=== PATIENT | female | born 1960 | race African-American/Black ===

== ENCOUNTER 2020-04-19 10:12 | Emergency (ER) | payer OTHER ==
[~2020-04-19] VITALS: Ht 175.3 cm; Wt 102.8 kg
[2020-04-19] MEDS ORDERED: diabetic med (10:23)
[2020-04-19] MEDS ORDERED: METF500T13 PO (10:23)
[2020-04-19] MEDS ORDERED: PANT20TA6 PO (10:23)
[2020-04-19] MEDS ORDERED: LISI2.5T2 PO (10:23)
[2020-04-19] MEDS ORDERED: blood pressure meds PO (10:23)
[2020-04-19] MEDS ORDERED: COLA100C5 PO (10:23)
[2020-04-19] MEDS ORDERED: LORA2CON5 PO (10:23)
[2020-04-19] MEDS ORDERED: AMIT-253 PO (10:23)
[2020-04-19] MEDS ORDERED: ONDANSETRON 4MG/2ML VIAL IV ONE (11:00)
[2020-04-19] MEDS ORDERED: GI COCKTAIL 50ML BTL(HYOSCYAMINE/MAALOX/LIDOCAINE VISCOUS)(1:3:1) PO ONE (11:00)
[2020-04-19] MEDS ORDERED: FAMOTIDINE INJ 20MG/2ML VIAL (S0028 PER 1) IVP ONE (11:00)
[2020-04-19] MEDS ORDERED: KETOROLAC 30 MG/ML 1ML VIAL IV ONE (11:00)
[2020-04-19 11:01] LABS: HEMATOCRIT 41.4 % (36.0-47.0); HEMOGLOBIN 12.9 g/dl (12.0-15.5); MEAN CORPUSCULAR HEMOGLOBIN 25.7 pg (27.0-33.0); MEAN CORPUSCULAR HGB CONC 31.2 g/dl (32.0-36.5); MEAN CORPUSCULAR VOLUME 82.5 fl (80.0-96.0); PLATELET COUNT, AUTOMATED 341 10^3/uL (150-450); RED BLOOD COUNT 5.02 10^6/uL (4.00-5.40); WHITE BLOOD COUNT 11.6 10^3/uL (4.0-10.0)
[2020-04-19] MEDS ORDERED: ISOVUE-370 76% 100ML VIAL As Ordered ONE (11:03)
[2020-04-19 11:24] LABS: ALBUMIN 3.1 GM/DL (3.2-5.2); ALT/SGPT 7 U/L (12-78); BILIRUBIN,DIRECT < 0.1 MG/DL (0.0-0.2); BILIRUBIN,TOTAL 0.2 MG/DL (0.2-1.0); LIPASE 137 U/L (73-393); TOTAL PROTEIN 7.8 GM/DL (6.4-8.2)
[2020-04-19] MEDS ORDERED: NS 1,000 ML IV ONE ×2 (11:30→12:15)
[2020-04-19 11:33] LABS: BLOOD UREA NITROGEN 10 MG/DL (7-18); CARBON DIOXIDE LEVEL 22 MEQ/L (21-32); CHLORIDE LEVEL 107 MEQ/L (98-107); CREATININE FOR GFR 0.92 MG/DL (0.55-1.30); GLOMERULAR FILTRATION RATE > 60.0 (>45); GLUCOSE, FASTING 186 MG/DL (70-100); POTASSIUM SERUM 3.9 MEQ/L (3.5-5.1); SODIUM LEVEL 138 MEQ/L (136-145)
--- NOTE | 2020-04-19 11:54 | REPVR ---
PROCEDURE INFORMATION: Exam: CT Abdomen And Pelvis With Contrast Exam date and time: 04/19/2020 11:08 AM Age: 59 years old Clinical indication: Abdominal pain; Localized; Right upper quadrant (ruq); Additional info: Ruq/mid gastric abd pain TECHNIQUE: Imaging protocol: Computed tomography of the abdomen and pelvis with intravenous contrast. Radiation optimization: All CT scans at this facility use at least one of these dose optimization techniques: automated exposure control; mA and/or kV adjustment per patient size (includes targeted exams where dose is matched to clinical indication); or iterative reconstruction. Contrast material: ISOVUE 370; Contrast volume: 100 ml; Contrast route: INTRAVENOUS (IV); COMPARISON: No relevant prior studies available. FINDINGS: Liver: Normal. No mass. Gallbladder and bile ducts: Normal. No calcified stones. No ductal dilation. Pancreas: Normal. No ductal dilation. Spleen: Normal. No splenomegaly. Adrenals: Normal. No mass. Kidneys and ureters: Bilateral renal benign simple cysts, larger on the left measuring 14.6 mm. Moderate left, minimal right renal cortical scarring. Stomach and bowel: Unremarkable. No obstruction. No mucosal thickening. Appendix: The vermiform appendix is normal. Intraperitoneal space: Unremarkable. No free air. No significant fluid collection. Vasculature: The distal descending thoracic aorta project slightly to right of midline, possibly due to tortuosity. Cardiac situs is normal as visualized. Calcified phleboliths are present in the lower pelvis bilaterally. Lymph nodes: No enlarged lymph nodes. Urinary bladder: The urinary bladder is partially decompressed and somewhat difficult to assess. Reproductive: Small benign-appearing left adnexal calcification. Bones/joints: Unremarkable. No acute fracture. Soft tissues: A small paraumbilical hernia containing only abdominal fat is noted. Right gluteal adipose calcified injection granulomata. IMPRESSION: 1. Bilateral renal benign simple cysts. No specific followup required/recommended. 2. Moderate left, minimal right renal cortical scarring. 3. No acute abdominal or pelvic abnormality identified. COMMENTS: Consistent with the [employer] [employer]'s Incidental Findings Committee white paper (J Am Teresa Radiol 2018): Any incidental renal lesion less than 1 cm or classified as too small to characterize, or any incidental cystic renal lesion characterized as simple-appearing, is likely benign. No follow-up imaging is recommended for these lesions per consensus recommendations based on imaging criteria. Electronically signed by: Ernesto Gomez On 04/19/2020 11:54:44 AM
--- NOTE | 2020-04-19 12:51 | REPVR ---
PROCEDURE INFORMATION: Exam: US Abdomen, Limited; Right Upper Quadrant Exam date and time: 04/19/2020 12:32 PM Age: 59 years old Clinical indication: Abdominal pain; Epigastric; Additional info: Ruq pain TECHNIQUE: Imaging protocol: US abdomen. Real time ultrasound with image documentation. Limited exam focused on the right upper quadrant. COMPARISON: CT ABD/PEL W/IV CONTRAST ONLY 04/19/2020 11:04 AM FINDINGS: Liver: Normal. No masses. Gallbladder: The gallbladder wall measures 2.6 mm. No gallstones. Common bile duct: The common bile duct measures 4.2 mm. No ductal calculi as visualized. Pancreas: The pancreas head and neck are unremarkable. The remainder of the gland is obscured by bowel gas. Right kidney: The right kidney measures 12.0 x 4.1 x 5.9 cm. Unremarkable. A brief color Doppler examination of the right kidney was performed showing normal color shifts. IMPRESSION: 1. Limitations as above. 2. No acute right upper quadrant abnormality identified. Electronically signed by: Ernesto Gomez On 04/19/2020 12:51:54 PM
[2020-04-19] MEDS ORDERED: SUCR1TA PO (15:59)
[2020-04-19 16:19] VITALS: BP 154/82
--- NOTE | 2020-04-20 05:34 | ECGEPIP ---
[facility] - ED Test Date: 2020-04-19 Pat Name: MAKSIM SCHULZ Department: Room: - Gender: Female Skimmer: : 1960 Requested By: Anil Bob Order Number: [id number] Reading MD: Robinson Lucero Measurements Intervals [place] Rate: 72 P: 27 MD: 164 QRS: -2 QRSD: 92 T: 32 QT: 416 QTc: 458 Interpretive Statements SINUS RHYTHM MINIMAL VOLTAGE CRITERIA FOR LVH, CONSIDER NORMAL VARIANT NO PRIORS FOR COMPARISON Electronically Signed on 04-20-2020 5:33:52 EDT by Robinson Lucero
--- NOTE | 2020-04-22 07:58 | ECGEPIP ---
[facility] Test Date: 2020-04-19 Pat Name: MAKSIM SCHULZ Department: Room: - Gender: Female [employer] Professional: : 1960 Requested By: PEG SIMON Order Number: [id number] Reading MD: Andrei Lugo Measurements Intervals [place] Rate: 67 P: 58 VA: 169 QRS: 14 QRSD: 90 T: 68 QT: 426 QTc: 453 Interpretive Statements Normal sinus rhythm Subtle nonspecific T wave abnormalities compared with tracing earlier the same day Clinical correlation advised Electronically Signed on 04-22-2020 7:58:04 EDT by Andrei Lugo
[2020-04-24] MEDS ORDERED: FLUTISP (15:16)
== END 2020-04-19 16:39 | disposition home or self-care (01) ==
LOC: M ED 10:12
DX: K29.70 Gastritis, unspecified, without bleeding (principal); K21.9 Gastro-esophageal reflux disease without esophagitis; N28.1 Cyst of kidney, acquired; I10 Essential (primary) hypertension; E11.9 Type 2 diabetes mellitus without complications; F41.9 Anxiety disorder, unspecified; F43.10 Post-traumatic stress disorder, unspecified; F31.9 Bipolar disorder, unspecified; Z79.82 Long term (current) use of aspirin; Z79.899 Other long term (current) drug therapy; Z79.84 Long term (current) use of oral hypoglycemic drugs; Z88.6 Allergy status to analgesic agent; Z88.8 Allergy status to other drugs, medicaments and biological substances
CPT/HCPCS: 36415; 74177; 76705; 80047; 80048; 80076; 83605; 83690; 84484; 85027; 93005; 93041; 96361; 96374; 99284; J1885; J2405; Q9967

== ENCOUNTER 2020-04-24 11:03 | Observation (INO) | payer OTHER ==
[~2020-04-24] VITALS: Ht 175.3 cm; Wt 104.3 kg
[2020-04-24] MEDS: OLANZapine 10 MG TAB PO SCH (09:00)
[~2020-04-24 11:03] MED LIST: AMIT-253 PO; COLA100C5 PO; LISI2.5T2 PO; LORA2CON5 PO; METF500T13 PO; PANT20TA6 PO; SUCR1TA PO; blood pressure meds PO; diabetic med
[2020-04-24] MEDS ORDERED: NS 1,000 ML IV ONE (11:45)
[2020-04-24] MEDS ORDERED: KETOROLAC 30 MG/ML 1ML VIAL IV ONE (11:45)
[2020-04-24] MEDS ORDERED: FAMOTIDINE INJ 20MG/2ML VIAL (S0028 PER 1) IVP ONE (11:45)
[2020-04-24 12:33] LABS: BASO # 0.1 10^3/uL (0.0-0.2); BASO % 0.5 % (0.0-1.0); EOS # 0.1 10^3/uL (0.0-0.5); HEMOGLOBIN 13.7 g/dl (12.0-15.5); LYMPH # 3.5 10^3/uL (1.5-5.0); LYMPH % 30.2 % (24.0-44.0); MEAN CORPUSCULAR HEMOGLOBIN 25.2 pg (27.0-33.0); MEAN CORPUSCULAR HGB CONC 30.4 g/dl (32.0-36.5); MEAN CORPUSCULAR VOLUME 82.7 fl (80.0-96.0); MONO # 0.8 10^3/uL (0.0-0.8); MONO % 6.5 % (0.0-5.0); NEUTROPHILS # 7.2 10^3/uL (1.5-8.5); NEUTROPHILS % 61.5 % (36.0-66.0); PLATELET COUNT, AUTOMATED 383 10^3/uL (150-450); RED BLOOD COUNT 5.44 10^6/uL (4.00-5.40); WHITE BLOOD COUNT 11.6 10^3/uL (4.0-10.0)
[2020-04-24 12:48] LABS: INR 0.97; PROTHROMBIN TIME 13.1 SECONDS (12.5-14.3)
[2020-04-24 12:49] LABS: PARTIAL THROMBOPLASTIN TIME 31.1 SECONDS (24.2-38.5)
[2020-04-24 13:10] LABS: ALBUMIN 3.4 GM/DL (3.2-5.2); ALT/SGPT < 6 U/L (12-78); BILIRUBIN,DIRECT < 0.1 MG/DL (0.0-0.2); BILIRUBIN,TOTAL 0.2 MG/DL (0.2-1.0); CK-MB VALUE MASS < 1.0 NG/ML (<3.6); CPK CREATINE PHOSPHOKINASE 47 U/L (26-192); LIPASE 737 U/L (73-393); MB/CK RELATIVE INDEX 2.13 (< OR =4); TOTAL PROTEIN 7.8 GM/DL (6.4-8.2); TROPONIN I < 0.02 NG/ML (< 0.10)
[2020-04-24] MEDS ORDERED: ISOVUE-370 76% 100ML VIAL As Ordered ONE (13:33)
--- NOTE | 2020-04-24 14:03 | REP ---
INDICATION: abd eckert/ inc lipase. COMPARISON: 04/19/2020 TECHNIQUE: Axial contrast-enhanced images from the lung bases to the pubic symphysis using 100 cc Isovue 370 intravenous contrast material. Coronal and sagittal reformations obtained.. This CT examination was performed using the following dose reduction techniques: Automated exposure control, adjustment of mA and/or kv according to the patient's size, and the use of iterative reconstruction technique. FINDINGS: Liver, spleen, pancreas, gallbladder, bilateral adrenal glands and kidneys are essentially normal. Few bilateral renal cysts are again noted and unchanged. The enteric system including stomach, small, and large bowel appears normal. No evidence for obstruction or acute inflammatory process. Normal terminal ileum and appendix are identified in the right lower quadrant. Pelvis demonstrates normal bladder and age-appropriate uterus/adnexa. No ascites. No free air. No intraperitoneal or retroperitoneal adenopathy. Abdominal aorta and vasculature appear normal. Musculoskeletal structures are intact and without acute osseous abnormality. IMPRESSION: No acute abdominopelvic pathology appreciated. No ascites. No focal inflammatory stranding. No adenopathy. No free air. <Electronically signed by Eric Salgado > 04/24/20 [id number]
[2020-04-24] MEDS ORDERED: MORPHINE 4 MG/ML 1ML VIAL/SYRINGE (J2270) IV ONE (14:45)
[2020-04-24] MEDS ORDERED: PANT40TA29 PO (15:16)
[2020-04-24] MEDS ORDERED: CARV25TA PO (15:16)
[2020-04-24] MEDS ORDERED: ONDA8TAB8 PO (15:16)
[2020-04-24] MEDS ORDERED: PREG300C PO (15:16)
[2020-04-24] MEDS ORDERED: FLUTISP NARES (15:16)
[2020-04-24] MEDS ORDERED: ALOG12.5 PO (15:16)
[2020-04-24] MEDS ORDERED: CITA40TA4 PO (15:16)
[2020-04-24] MEDS ORDERED: SUCR1TAB56 PO (15:16)
[2020-04-24] MEDS ORDERED: AMLO1TAB25 PO (15:16)
[2020-04-24] MEDS ORDERED: ATIV1TAB10 PO (15:16)
[2020-04-24] MEDS ORDERED: OLAN20TA14 PO (15:16)
[2020-04-24] MEDS ORDERED: ASPI-551 PO (15:16)
[2020-04-24] MEDS ORDERED: METF850T4 PO (15:16)
[2020-04-24] MEDS ORDERED: SIMV40TA20 PO (15:16)
[2020-04-24] MEDS ORDERED: IBUP-1022 PO (15:16)
[2020-04-24] MEDS ORDERED: DOCU100C16 PO (15:16)
[2020-04-24] MEDS ORDERED: D31000TA2 PO (15:16)
[2020-04-24] MEDS ORDERED: AMIT10TA PO (15:16)
--- NOTE | 2020-04-24 15:40 | HPEPDOC ---
[facility] Medical History & Physical Date of Admission Apr 24, 2020 Date of Service: Apr 24, 2020 History and Physical CHIEF COMPLAINT: abdominal pain HISTORY OF PRESENT ILLNESS: Patient is a 59-year-old female with past medical history of tobacco use, hx of pancreatitis, diabetes mellitus type 2, hypertension, bipolar disorder, PTSD who presented to [facility] ER with worsening epigastric pain. The patient was recently seen here on 04/19/2020 with similar type pain, lipase was mildly elevated at 137, WBC was wnl. She ended up discharged with a diagnosis of gastritis on sucralfate 4 times a day. After her discharge, her pain improved for three days after but then worsened. She describes the pain as epigastric and in the left upper quadrant on exam. She says it is constant, today went up to 10/10, radiated to the back and associated with simultaneous anterior chest pain. The chest pain was not noted to radiate to the neck or down the arm. Abdominal pain was associated with some nausea and diaphoresis along with a decreased appetite over the past 3 weeks. She denies shortness of breath, vomiting, diarrhea, coughing, fevers or chills, lightheadedness, dizziness or beat numbness. In the emergency room, VS were stable. Pain was present in the epigastric, umbilical and left upper quadrant. Pain was recreated in the anterior chest separate from the abdominal pain, was found to be likely musculoskeletal. lipase was elevated at 737 from [address] abd/pelvis neg. WBC 11.6, minimally elevated. Patient was admitted under observation status for abdominal pain r/o acute pancreatitis vs. gastric ulcer, chest pain. REVIEW OF SYSTEMS: Neg except mentioned above PAST MEDICAL HISTORY: 1. Hx of pancreatitis 2. DM type II 3. HTN 4. Tobacco use 5. Bipolar disorder 6. PTSD 7. Obesity PAST SURGICAL HISTORY: 1. 2 cesarian sections FAMILY HISTORY: Father: DM, HTN, cancer. at 81 y/o Mother: She does not know her health history or if she is alive/ SOCIAL HISTORY: Smoker 1 1/2 PPD for past 48 years, denies alcohol or drug use. Just recently moved into the area from [place]. Has not yet established PCP with [facility] but has upcoming appointment. Follows with behavioral health/psych through [place], endocrine through [place]. Full Code. ALLERGIES: Please see below. HOME MEDICATIONS: Please see below. PHYSICAL EXAMINATION: VS: Please see below CONSTITUTIONAL: No acute distress, resting comfortably, AAO x 3 EYES: PERRLA, EOM intact HENT, MOUTH: Normocephalic, atraumatic, moist mucous membranes NECK: SUPPLE, no JVD, no lymphadenopathy, no carotid bruit CV: Regular rate and rhythm, S1S2 normal, no murmurs/rubs/gallops RESPIRATORY: Clear to auscultation bilaterally, no rales/rhonchi/wheezes GI: Pain to palpation of epigastric, umbilical and LUQ 4/10. BS positive in 4 quadrants, soft, no rebound or guarding, no organomegaly : Deferred MUSCULOSKELETAL: Normal ROM. No cyanosis, clubbing, swelling, joint deformity, extremity edema INTEGUMENTARY: Intact, no rashes, no lesions, no erythema NEUROLOGIC: Cranial Nerves II-XII are intact, no focal deficits PSYCHIATRIC: Mood and affect are normal LABORATORY DATA: Please see below IMAGING: CT abd/pelvis: No acute abdominopelvic pathology appreciated. No ascites. No focal inflammatory stranding. No adenopathy. No free air. ASSESSMENT: 59-year-old female with past medical history of tobacco use, hx of pancreatitis, diabetes mellitus type 2, hypertension, bipolar disorder, PTSD admitted under observation status for abdominal pain r/o acute pancreatitis vs. gastric ulcer, chest pain. PLAN: 1. Abdominal pain 2/2 acute pancreatitis vs. gastric ulcer as cause -Abdominal pain shooting to back from epigastric/LUQ, at times associated with anterior chest pain. Improved slightly with PO sulcralfate o/p -RF for gastric ulcer: obesity, tobacco use, NSAID use -Lipase incr from 130 to >700, hx of pancreatitis. -Pain currently 6/10 on pain scale -F/u daily labs, lipid panel, h. pylori -Stop Ibuprofen home med -Starting on PPI BID, CLD, sucralfate QID. If pain worsens, stop diet completely and will consider surgery consult for possible endoscopy. -Pain control toradol and morphine 2. Chest pain, r/o ACS vs. 2/2 to abdominal cause above -Trop neg x1, cycle 2 additional -ECG abnormal, no prior to compare. -RF include: obesity, tobacco use, DM type II, HTN -C/w workup above for now. 3. Tobacco use -does not wish to have nicotine patch 4. Dm type II -BS 277 -F/u lipid panel, HbA1c -ISS, FS AC/HS, consistent carb diet when advanced 5. HTN -C/w home meds 6. Bipolar d/o / PTSD -C/w home meds -F/u with o/p psychiatry 7. GI px -PPI 8. DVT px -Enoxaparin DISPOSITION: Admitted under observation status. considering surgery consult. Plan is discharge home when medically improve.d Vital Signs Vital Signs Date Time Temp Pulse Resp B/P (MAP) Pulse Ox O2 Delivery O2 Flow Rate FiO2 04/24/20 14:49 18 Room Air 04/24/20 12:26 04/24/20 11:04 97.0 86 99 Laboratory Data Labs 24H Laboratory Tests 2 04/24/20 12:18: Immature Granulocyte % (Auto) 0.3, Neutrophils (%) (Auto) 61.5, Lymphocytes (%) (Auto) 30.2, Monocytes (%) (Auto) 6.5H, Eosinophils (%) (Auto) 1.0, Basophils (%) (Auto) 0.5, Neutrophils # (Auto) 7.2, Lymphocytes # (Auto) 3.5, Monocytes # (Auto) 0.8, Eosinophils # (Auto) 0.1, Basophils # (Auto) 0.1, Nucleated Red Blood Cells % (auto) 0.0, Prothrombin Time 13.1, Prothromb Time International Ratio 0.97, Activated Partial Thromboplast Time 31.1, Lactic Acid Level 1.4, Total Bilirubin 0.2, Direct Bilirubin < 0.1, Aspartate Amino Transf (AST/SGOT) < 3L, Alanine Aminotransferase (ALT/SGPT) < 6L, Alkaline Phosphatase 106, Total Creatine Kinase 47, Creatine Kinase MB < 1.0, Creatine Kinase MB Relative Index 2.13, Troponin I < 0.02, Total Protein 7.8, Albumin 3.4, Albumin/Globulin Ratio 0.8L, Lipase 737H 04/24/20 12:19: POC Glucose (Misc Panel) 277H, POC Sodium (Misc Panel) 139, POC Potassium (Misc Panel) 3.6, POC Chloride (Misc Panel) 99, POC Total CO2 (Misc Panel) 24.0, POC Blood Urea Nitrogen (Misc Panel 6L, POC Ionized Calcium (Misc Panel) 5.1, POC Creatinine (Misc Panel) 0.6, POC Hematocrit (Misc Panel) 48.0 CBC/BMP Laboratory Tests 04/24/20 12:18 Home Medications Scheduled Alogliptin Benzoate (Alogliptin) 12.5 Mg Tablet, 12.5 MG PO DAILY Amitriptyline HCl (Amitriptyline HCl) 10 Mg Tablet, 10 MG PO BID Amlodipine Besylate (Amlodipine Besylate) 10 Mg Tablet, 10 MG PO DAILY Aspirin (Aspirin EC) 81 Mg Tablet.dr, 162 MG PO DAILY Carvedilol (Carvedilol) 25 Mg Tablet, 25 MG PO BID Cholecalciferol (Vitamin D3) (Vitamin D3) 1,000 Unit Tablet, 2,000 UNITS PO DAILY Citalopram Hydrobromide (Citalopram HBr) 40 Mg Tablet, 20 MG PO DAILY Metformin HCl (Metformin HCl) 850 Mg Tablet, 850 MG PO WM Olanzapine (Olanzapine) 20 Mg Tablet, 20 MG PO DAILY Pantoprazole Sodium (Pantoprazole Sodium) 40 Mg Tablet.dr, 40 MG PO BID Pregabalin (Pregabalin) 300 Mg Capsule, 300 MG PO BID Simvastatin (Simvastatin) 40 Mg Tablet, 20 MG PO QHS Sucralfate (Sucralfate) 1 Gm Tablet, 1 GM PO QID Scheduled PRN Docusate Sodium (Docusate Sodium) 100 Mg Capsule, 100 MG PO BID PRN for CONSTIPATION Fluticasone Propionate (Fluticasone Propionate) 16 Gm [place].susp, 1 SPRAY NARES DAILY PRN for CONGESTION Ibuprofen (Ibuprofen) 600 Mg Tablet, 600 MG PO BID PRN for PAIN Lorazepam (Ativan) 0.5 Mg Tablet, 0.5 MG PO BID PRN for ANXIETY Ondansetron (Ondansetron Odt) 8 Mg Tab.rapdis, 8 MG PO Q6H PRN for NAUSEA OR VOMITING Allergies Coded Allergies: diazepam (Verified Allergy, Intermediate, hyperactivity, 04/19/20) sulfamethoxazole (Verified Allergy, Intermediate, rash, 04/19/20) trimethoprim (Verified Allergy, Intermediate, rash, 04/19/20) A-FIB/CHADSVASC A-FIB History Current/History of A-Fib/PAF?: No Current PO Anticoag Therapy: No Age/Risk Factor Scoring CHADSVASC: CHADSVASC Response (Comments) Value Age Risk Factor Age < 65 years old 0 Gender Risk Factor Female 1 Hx of CHF No 0 Hx of HTN Yes 1 Hx of Stroke/TIA/or VTE No 0 Hx of Diabetes Yes 1 Hx of Vascular Disease No 0 Total 3 Treatment Treatment ordered: Other Other anticoagulant ordered: enoxaparin Niyah Chávez MD Apr 24, 2020 15:39
[2020-04-24 16:15] VITALS: BP 161/86
[2020-04-24] MEDS ORDERED: MORPHINE 2 MG/ML 1ML VIAL (J2270) IV PRN (16:15)
[2020-04-24] MEDS ORDERED: GLUCOSE 4GM CHEW TABLET PO PRN (16:15)
[2020-04-24] MEDS ORDERED: GLUCAGON INJ 1MG VIAL SC PRN (16:15)
[2020-04-24] MEDS ORDERED: DEXTROSE 50% 50 ML SYRINGE IV PRN (16:15)
[2020-04-24 16:24] LABS: CHOLESTEROL LEVEL 132 MG/DL (<200); HDL CHOLESTEROL 33 MG/DL (>40); LDL CHOLESTEROL 68 MG/DL (<100); NON-HDL-C 99 MG/DL; TRIGLYCERIDES LEVEL 156 MG/DL (<150)
[2020-04-24] MEDS: NS 1,000 ML IV SCH (16:26)
[2020-04-24] MEDS ORDERED: ONDANSETRON 4 MG ORAL DISINTEGRATING TAB PO PRN (16:30)
[2020-04-24] MEDS ORDERED: LORazepam 0.5 MG TAB PO PRN (16:30)
[2020-04-24] MEDS ORDERED: FLUTICASONE PROP 0.05% NASAL SPRAY 16 GM (FLONASE) NARES PRN (16:30)
[2020-04-24] MEDS ORDERED: DOCUSATE SODIUM 100 MG CAP PO PRN (16:30)
[2020-04-24] MEDS: SUCRALFATE SUSP 1GM/10ML UD PO SCH ×2 (17:41→20:11)
[2020-04-24] MEDS: amLODIPine 10 MG TAB PO SCH (17:42)
[2020-04-24] MEDS: ASPIRIN 81 MG ENTERIC TAB PO SCH (17:42)
[2020-04-24] MEDS: CitaloPRAM (CeleXA) 20 MG TAB PO SCH (17:42)
[2020-04-24] MEDS: VITAMIN D 1,000 INTERNATIONAL UNITS TABLET PO SCH (17:42)
[2020-04-24] MEDS: HumaLOG INSULIN (NovoLOG) PER UNIT SC SCH (18:32)
[2020-04-24] MEDS: PANTOPRAZOLE 40MG VIAL (C9113 PER 1) IV SCH (20:11)
[2020-04-24] MEDS: CARVedilol 12.5 MG TAB PO SCH (20:12)
[2020-04-24] MEDS: PREGABALIN 100 MG CAP (LYRICA) PO SCH (20:12)
[2020-04-24] MEDS: ENOXAPARIN 40MG/0.4ML SYRINGE (J1650 PER 10MG) SC SCH (20:13)
[2020-04-24] MEDS: KETOROLAC 30 MG/ML 1ML VIAL IV SCH (20:14)
[2020-04-24 22:00] VITALS: BP 122/60
[2020-04-24] MEDS: AMITRIPTYLINE 10 MG TAB PO SCH (22:35)
[2020-04-25] MEDS: HumaLOG INSULIN (NovoLOG) PER UNIT SC SCH ×5 (01:18→21:20)
[2020-04-25] MEDS: NS 1,000 ML IV SCH ×3 (02:41→21:20)
[2020-04-25] MEDS: KETOROLAC 30 MG/ML 1ML VIAL IV SCH ×2 (04:14→12:53)
[2020-04-25] MEDS: amLODIPine 10 MG TAB PO SCH (05:20)
[2020-04-25 06:00] VITALS: BP 170/90
[2020-04-25 06:21] LABS: HEMATOCRIT 38.8 % (36.0-47.0); HEMOGLOBIN 11.9 g/dl (12.0-15.5); MEAN CORPUSCULAR HEMOGLOBIN 25.4 pg (27.0-33.0); MEAN CORPUSCULAR HGB CONC 30.7 g/dl (32.0-36.5); MEAN CORPUSCULAR VOLUME 82.9 fl (80.0-96.0); PLATELET COUNT, AUTOMATED 337 10^3/uL (150-450); RED BLOOD COUNT 4.68 10^6/uL (4.00-5.40); WHITE BLOOD COUNT 7.7 10^3/uL (4.0-10.0)
[2020-04-25 06:42] VITALS: BP 157/78
[2020-04-25 06:43] LABS: ALBUMIN 2.8 GM/DL (3.2-5.2); ALT/SGPT 6 U/L (12-78); BILIRUBIN,TOTAL 0.2 MG/DL (0.2-1.0); BLOOD UREA NITROGEN 5 MG/DL (7-18); CARBON DIOXIDE LEVEL 26 MEQ/L (21-32); CHLORIDE LEVEL 111 MEQ/L (98-107); CREATININE FOR GFR 0.65 MG/DL (0.55-1.30); GLOMERULAR FILTRATION RATE > 60.0 (>45); GLUCOSE, FASTING 145 MG/DL (70-100); LIPASE 225 U/L (73-393); POTASSIUM SERUM 3.6 MEQ/L (3.5-5.1); SODIUM LEVEL 142 MEQ/L (136-145); TOTAL PROTEIN 6.5 GM/DL (6.4-8.2)
[2020-04-25] MEDS: PANTOPRAZOLE 40MG VIAL (C9113 PER 1) IV SCH ×2 (07:33→21:18)
[2020-04-25] MEDS: ASPIRIN 81 MG ENTERIC TAB PO SCH (07:34)
[2020-04-25] MEDS: SUCRALFATE SUSP 1GM/10ML UD PO SCH ×4 (07:34→21:18)
[2020-04-25] MEDS: VITAMIN D 1,000 INTERNATIONAL UNITS TABLET PO SCH (07:34)
[2020-04-25] MEDS: SIMVASTATIN 20 MG TAB PO SCH (07:35)
[2020-04-25] MEDS: OLANZapine 10 MG TAB PO SCH (07:35)
[2020-04-25] MEDS: PREGABALIN 100 MG CAP (LYRICA) PO SCH ×2 (07:35→21:19)
[2020-04-25] MEDS: CitaloPRAM (CeleXA) 20 MG TAB PO SCH (07:36)
[2020-04-25] MEDS: CARVedilol 12.5 MG TAB PO SCH ×2 (07:37→21:19)
[2020-04-25] MEDS ORDERED: PANTOPRAZOLE 40MG VIAL (C9113 PER 1) IV SCH (09:00)
[2020-04-25] MEDS: cefTRIAXone SOD 1 GM in D5W MINI-BAG PLUS 50 ML IV SCH (09:55)
[2020-04-25 14:00] VITALS: BP 140/81
--- NOTE | 2020-04-25 15:38 | IPNPDOC ---
Date Seen The patient was seen on 04/25/20. Progress Note SUBJECTIVE: Tolerating CLD well, advancing further today. If pain with eating, consider surgery consult for EGD. Denies chest pain, incr abdominal pain, fevers, chills, n/v/d. OBJECTIVE PHYSICAL EXAMINATION: VS: Please see below CONSTITUTIONAL: No acute distress, resting comfortably, AAO x 3 EYES: PERRLA, EOM intact HENT, MOUTH: Normocephalic, atraumatic, moist mucous membranes NECK: SUPPLE, no JVD, no lymphadenopathy, no carotid bruit CV: Regular rate and rhythm, S1S2 normal, no murmurs/rubs/gallops RESPIRATORY: Clear to auscultation bilaterally, no rales/rhonchi/wheezes GI: mild pain to palpation of epigastric, umbilical and LUQ. BS positive in 4 quadrants, soft, no rebound or guarding, no organomegaly : Deferred MUSCULOSKELETAL: Normal ROM. No cyanosis, clubbing, swelling, joint deformity, extremity edema INTEGUMENTARY: Intact, no rashes, no lesions, no erythema NEUROLOGIC: Cranial Nerves II-XII are intact, no focal deficits PSYCHIATRIC: Mood and affect are normal LABORATORY DATA: Please see below IMAGING: CT abd/pelvis: No acute abdominopelvic pathology appreciated. No ascites. No focal inflammatory stranding. No adenopathy. No free air. ASSESSMENT: 59-year-old female with past medical history of tobacco use, hx of pancreatitis, diabetes mellitus type 2, hypertension, bipolar disorder, PTSD admitted under observation status for abdominal pain r/o acute pancreatitis vs. gastric ulcer, chest pain. PLAN: 1. Abdominal pain 2/2 acute pancreatitis vs. gastric ulcer as cause -Pain much improved today, minimal on exam -RF for gastric ulcer: obesity, tobacco use, NSAID use -Lipase improved from >700 to 225, hx of pancreatitis. -Lipid panel showed minimal elevation of TG -H. pylori pending -Stopped Ibuprofen home med -C/w PPI BID, CLD, sucralfate liquid QID. -Advanced diet further today. If pain worsens, consider surgery consult for possible endoscopy. If no pain after advancing, PCP should refer to GI for possible upper endoscopy. -Pain control 2. Chest pain, r/o ACS vs. 2/2 to abdominal cause above -Trop neg x3 -ECG abnormal, no prior to compare. -RF include: tobacco use, DM type II, HTN -C/w workup above for now. 3. Tobacco use -does not wish to have nicotine patch 4. Dm type II, uncontrolled -BS -HbA1c 10, elevated TG -ISS, FS AC/HS, consistent carb diet 5. HTN -C/w home meds 6. Bipolar d/o / PTSD -C/w home meds -F/u with o/p psychiatry 7. GI px -PPI 8. DVT px -Enoxaparin DISPOSITION: Admitted under observation status. considering surgery consult if pain with advanced diet present. Plan is discharge home when medically improved VS, I&O, 24H, Fishbone Vital Signs/I&O Vital Signs Date Time Temp Pulse Resp B/P (MAP) Pulse Ox O2 Delivery O2 Flow Rate FiO2 04/25/20 14:00 96.9 60 20 140/81 (100) 98 Room Air I&O- Last 24 Hours up to 6 AM 04/25/20 06:00 Intake Total 4200 ml Output Total 300 ml Balance 3900 ml Laboratory Data 24H LABS Laboratory Tests 2 04/24/20 16:34: Troponin I < 0.02 04/24/20 18:28: Bedside Glucose (Misc Panel) 390H 04/24/20 19:57: Troponin I < 0.02 04/24/20 22:40: Urine Color YELLOW, Urine Appearance HAZY, Urine pH 5.0, Urine Specific [place] S3, Urine Protein 1+H, Urine Glucose (UA) 3+H, Urine Ketones TRACEH, Urine Blood 1+H, Urine Nitrite POSITIVEH, Urine Bilirubin NEGATIVE, Urine Urobilinogen 0.2, Urine Leukocyte Esterase 2+H, Urine WBC (Auto) 68H, Urine RBC (Auto) 6H, Urine Hyaline Casts (Auto) 0, Urine Bacteria (Auto) 1+H, Urine Squamous Epithelial Cells 1, Urine Sperm (Auto) 04/25/20 00:58: Bedside Glucose (Misc Panel) 272H 04/25/20 02:40: Bedside Glucose (Misc Panel) 266H 04/25/20 05:52: Nucleated Red Blood Cells % (auto) 0.0, Anion Gap 5L, Glomerular Filtration Rate > 60.0, Calcium Level 9.0, Total Bilirubin 0.2, Aspartate Amino Transf (AST/SGOT) 3L, Alanine Aminotransferase (ALT/SGPT) 6L, Alkaline Phosphatase 85, Total Protein 6.5, Albumin 2.8L, Albumin/Globulin Ratio 0.8L, Lipase 225 04/25/20 06:00: Bedside Glucose (Misc Panel) 148H 04/25/20 11:31: Bedside Glucose (Misc Panel) 316H CBC/BMP Laboratory Tests 04/25/20 05:52 Microbiology Microbiology 04/24/20 Urine Culture, Received Pending Current Medications Current Medications Medications (Trade) Dose Ordered Sig/Hasmukh Route PRN Reason Start Time Stop Time Status Last Admin Dose Admin Amitriptyline HCl (Elavil) 20 mg QHS PO 04/24/20 21:00 04/24/20 22:35 Amlodipine Besylate (Norvasc) 10 mg DAILY PO 04/24/20 09:00 04/25/20 05:20 Aspirin (Ecotrin) 162 mg DAILY PO 04/24/20 09:00 04/25/20 07:34 Carvedilol (COReg) 25 mg BID PO 04/24/20 21:00 04/25/20 07:37 Ceftriaxone Sodium 1 gm/ Dextrose 50 ml @ 100 mls/hr Q24H IV 04/25/20 09:00 04/25/20 09:55 Citalopram Hydrobromide (CeleXA) 20 mg DAILY PO 04/24/20 09:00 04/25/20 07:36 Dextrose (Dextrose 50%) 25 ml ASDIRECTED PRN IV SEE LABEL COMMENTS 04/24/20 16:15 Docusate Sodium (Colace) 100 mg BID PRN PO CONSTIPATION 04/24/20 16:30 Enoxaparin Sodium (Lovenox) 40 mg QHS SC 04/24/20 21:00 04/24/20 20:13 Fluticasone Propionate (Flonase 0.05% Nasal [place]) 1 spray DAILY PRN NARES CONGESTION 04/24/20 16:30 Glucagon (Glucagon) 1 mg ASDIRECTED PRN SC SEE LABEL COMMENTS 04/24/20 16:15 Glucose (Glucose) 16 GM ASDIRECTED PRN PO SEE LABEL COMMENTS 04/24/20 16:15 Home Med (Med Rec Complete!) ASDIRECTED XX 04/24/20 16:00 04/24/20 15:52 DC Insulin Human Lispro (HumaLOG INSULIN) SEE PROTOCOL TABLE Q6H SC 04/24/20 18:00 04/25/20 12:54 Ketorolac Tromethamine (ToRADol) 15 mg Q8H IV 04/24/20 20:00 04/29/20 19:59 04/25/20 12:53 Lorazepam (Ativan) 0.5 mg BID PRN PO ANXIETY 04/24/20 16:30 Morphine Sulfate (Morphine Sulfate Inj) 1 mg Q6H PRN IV SEVERE PAIN (PS 8-10) 04/24/20 16:15 04/24/20 18:33 Olanzapine (ZyPREXA) 20 mg DAILY PO 04/24/20 09:00 04/25/20 07:35 Ondansetron HCl (Zofran Odt) 8 mg Q6H PRN PO NAUSEA OR VOMITING 04/24/20 16:30 Pantoprazole Sodium (Protonix) 40 mg BID IV 04/24/20 21:00 04/25/20 07:33 Pantoprazole Sodium (Protonix) 40 mg DAILY IV 04/25/20 09:00 04/24/20 16:22 DC Pregabalin (Lyrica) 300 mg BID PO 04/24/20 21:00 04/25/20 07:35 Simvastatin (Zocor) 20 mg DAILY PO 04/25/20 09:00 04/25/20 07:35 Sodium Chloride 1,000 ml @ 100 mls/hr Q10H IV 04/24/20 16:00 04/25/20 12:53 Sucralfate (Carafate Suspension) 1 gm ACHS PO 04/24/20 17:30 04/25/20 12:54 Vitamin D (Vitamin D) 2,000 units DAILY PO 04/24/20 09:00 04/25/20 07:34 Allergies Coded Allergies: diazepam (Verified Allergy, Intermediate, hyperactivity, 04/19/20) sulfamethoxazole (Verified Allergy, Intermediate, rash, 04/19/20) trimethoprim (Verified Allergy, Intermediate, rash, 04/19/20) Niyah Chávez MD Apr 25, 2020 15:38
[2020-04-25] MEDS: ENOXAPARIN 40MG/0.4ML SYRINGE (J1650 PER 10MG) SC SCH (21:18)
[2020-04-25 22:00] VITALS: BP 168/62
[2020-04-25] MEDS: AMITRIPTYLINE 10 MG TAB PO SCH (23:19)
[2020-04-26 01:41] VITALS: BP 170/90
[2020-04-26 06:00] VITALS: BP 174/90
[2020-04-26 06:49] LABS: HEMATOCRIT 38.6 % (36.0-47.0); HEMOGLOBIN 12.1 g/dl (12.0-15.5); MEAN CORPUSCULAR HEMOGLOBIN 26.1 pg (27.0-33.0); MEAN CORPUSCULAR HGB CONC 31.3 g/dl (32.0-36.5); MEAN CORPUSCULAR VOLUME 83.2 fl (80.0-96.0); PLATELET COUNT, AUTOMATED 322 10^3/uL (150-450); RED BLOOD COUNT 4.64 10^6/uL (4.00-5.40)
[2020-04-26 07:07] LABS: ALBUMIN 2.9 GM/DL (3.2-5.2); ALT/SGPT 8 U/L (12-78); BILIRUBIN,TOTAL 0.2 MG/DL (0.2-1.0); BLOOD UREA NITROGEN 7 MG/DL (7-18); CALCIUM LEVEL 8.8 MG/DL (8.8-10.2); CARBON DIOXIDE LEVEL 25 MEQ/L (21-32); CHLORIDE LEVEL 112 MEQ/L (98-107); CREATININE FOR GFR 0.83 MG/DL (0.55-1.30); GLOMERULAR FILTRATION RATE > 60.0 (>45); GLUCOSE, FASTING 298 MG/DL (70-100); POTASSIUM SERUM 3.8 MEQ/L (3.5-5.1); SODIUM LEVEL 143 MEQ/L (136-145); TOTAL PROTEIN 6.4 GM/DL (6.4-8.2)
[2020-04-26] MEDS: PREGABALIN 100 MG CAP (LYRICA) PO SCH ×2 (08:23→21:33)
[2020-04-26] MEDS: SUCRALFATE SUSP 1GM/10ML UD PO SCH ×4 (08:23→21:32)
[2020-04-26] MEDS: OLANZapine 10 MG TAB PO SCH (08:23)
[2020-04-26] MEDS: ASPIRIN 81 MG ENTERIC TAB PO SCH (08:24)
[2020-04-26] MEDS: SIMVASTATIN 20 MG TAB PO SCH (08:24)
[2020-04-26] MEDS: VITAMIN D 1,000 INTERNATIONAL UNITS TABLET PO SCH (08:24)
[2020-04-26] MEDS: CitaloPRAM (CeleXA) 20 MG TAB PO SCH (08:24)
[2020-04-26] MEDS: CARVedilol 12.5 MG TAB PO SCH ×2 (08:24→21:36)
[2020-04-26] MEDS: amLODIPine 10 MG TAB PO SCH (08:24)
[2020-04-26] MEDS: cefTRIAXone SOD 1 GM in D5W MINI-BAG PLUS 50 ML IV SCH (08:24)
[2020-04-26] MEDS: PANTOPRAZOLE 40MG VIAL (C9113 PER 1) IV SCH ×2 (08:24→21:33)
[2020-04-26] MEDS: NS 1,000 ML IV SCH ×2 (08:25→17:33)
[2020-04-26] MEDS: HumaLOG INSULIN (NovoLOG) PER UNIT SC SCH ×4 (08:26→21:32)
--- NOTE | 2020-04-26 08:59 | ECGEPIP ---
[facility] - ED Test Date: 2020-04-24 Pat Name: MAKSIM SCHULZ Department: Room: - Gender: Female Program Manager Transportation: JERALD : 1960 Requested By: TOM MACDONALD PA-C Order Number: [id number] Reading MD: Jade Cerda Measurements Intervals [place] Rate: 75 P: 52 NE: 159 QRS: 24 QRSD: 93 T: 62 QT: 398 QTc: 446 Interpretive Statements SINUS RHYTHM NONSPECIFIC T-WAVE ABNORMALITY INCREASED RATE 04/19/20 Electronically Signed on 04-26-2020 8:59:15 EDT by Jade Cerda
[2020-04-26 14:00] VITALS: BP 188/92
--- NOTE | 2020-04-26 15:21 | IPNPDOC ---
Text Note Date of Service The patient was seen on 04/26/20. NOTE Subjective: No any acute events overnight. In the morning after breakfast veronica woods complains of epigastric abdominal pain 5 out of 10. Objective: GENERAL APPEARANCE: NAD HEENT: no scleral icterus, no JVD, EOMI CARDIOVASCULAR: S1S2 LUNGS: CTA ABDOMEN: Mild tenderness in epigastric area MUSCULOSKELETAL: no cyanosis, no swelling INTEGUMENT: no generalized palor NEUROLOGICAL: cranial nerve function from 2-12 intact intact, follows commands, speech not dysarthric Assessment and plan 59-year-old female with past medical history of tobacco use, hx of pancreatitis, diabetes mellitus type 2, hypertension, bipolar disorder, PTSD admitted under observation status for abdominal pain r/o acute pancreatitis vs. gastric ulcer, chest pain. Abdominal pain Most likely gastritis versus stomach ulcer, peptic ulcer Patient stated that she used ibuprofen and the pain usually exacerbated after meal Continue PPI H. pylori negative Patient will need endoscopy in the outpatient settings Full liquid diet for now Chest pain Resolved Trop negative EKG negative for acute ischemic changes Diabetes Poorly controlled Diabetes diet Insulin sliding scale Detemir twice a day Hypertension Blood pressure elevated I added chlorthalidone encourage Bipolar d/o / PTSD C/w home meds F/u with o/p psychiatry UTI UA shows pyuria Patient has urinary frequency Continue ceftriaxone VS,Fishbone, I+O VS, Fishbone, I+O Laboratory Tests 04/26/20 06:17 Vital Signs Date Time Temp Pulse Resp B/P (MAP) Pulse Ox O2 Delivery O2 Flow Rate FiO2 04/26/20 08:24 74 174/90 04/26/20 06:00 98.6 18 97 Room Air I&O- Last 24 Hours up to 6 AM 04/26/20 06:00 Intake Total 2300 ml Output Total 4675 ml Balance -2375 ml PRASHANTH LEE DO Apr 26, 2020 15:21
[2020-04-26] MEDS ORDERED: ACETAMINOPHEN TAB 650MG DOSE (2X325MG) PO PRN (15:30)
[2020-04-26] MEDS ORDERED: CHLORTHALIDONE 25 MG TAB PO ONE (16:00)
[2020-04-26 16:11] VITALS: BP 162/90
[2020-04-26] MEDS: ENOXAPARIN 40MG/0.4ML SYRINGE (J1650 PER 10MG) SC SCH (21:32)
[2020-04-26] MEDS: LEVEMIR (INSULIN DETEMIR) 1 UNITS/0.01ML SC SCH (21:32)
[2020-04-26] MEDS: AMITRIPTYLINE 10 MG TAB PO SCH (21:34)
[2020-04-26 22:00] VITALS: BP 182/92
[2020-04-27] MEDS: NS 1,000 ML IV SCH (03:19)
[2020-04-27] MEDS ORDERED: lisinopriL 20 MG TAB PO SCH (05:30)
[2020-04-27 06:00] VITALS: BP 190/98
[2020-04-27 06:22] LABS: HEMATOCRIT 38.6 % (36.0-47.0); HEMOGLOBIN 12.4 g/dl (12.0-15.5); MEAN CORPUSCULAR HEMOGLOBIN 26.3 pg (27.0-33.0); MEAN CORPUSCULAR HGB CONC 32.1 g/dl (32.0-36.5); PLATELET COUNT, AUTOMATED 304 10^3/uL (150-450); RED BLOOD COUNT 4.71 10^6/uL (4.00-5.40); WHITE BLOOD COUNT 7.5 10^3/uL (4.0-10.0)
[2020-04-27 06:44] LABS: ALT/SGPT 11 U/L (12-78); BILIRUBIN,TOTAL 0.2 MG/DL (0.2-1.0); BLOOD UREA NITROGEN 4 MG/DL (7-18); CALCIUM LEVEL 9.2 MG/DL (8.8-10.2); CARBON DIOXIDE LEVEL 27 MEQ/L (21-32); CHLORIDE LEVEL 107 MEQ/L (98-107); CREATININE FOR GFR 0.67 MG/DL (0.55-1.30); GLOMERULAR FILTRATION RATE > 60.0 (>45); GLUCOSE, FASTING 268 MG/DL (70-100); POTASSIUM SERUM 3.8 MEQ/L (3.5-5.1); SODIUM LEVEL 140 MEQ/L (136-145); TOTAL PROTEIN 6.7 GM/DL (6.4-8.2)
[2020-04-27] MEDS ORDERED: CHLORTHALIDONE 25 MG TAB PO SCH ×2 (09:00→21:00)
[2020-04-27] MEDS: cefTRIAXone SOD 1 GM in D5W MINI-BAG PLUS 50 ML IV SCH (09:04)
[2020-04-27] MEDS: LEVEMIR (INSULIN DETEMIR) 1 UNITS/0.01ML SC SCH (09:07)
[2020-04-27] MEDS: ASPIRIN 81 MG ENTERIC TAB PO SCH (09:08)
[2020-04-27] MEDS: amLODIPine 10 MG TAB PO SCH (09:08)
[2020-04-27] MEDS: HumaLOG INSULIN (NovoLOG) PER UNIT SC SCH ×2 (09:08→12:17)
[2020-04-27] MEDS: PREGABALIN 100 MG CAP (LYRICA) PO SCH (09:08)
[2020-04-27] MEDS: SUCRALFATE SUSP 1GM/10ML UD PO SCH ×2 (09:08→12:16)
[2020-04-27] MEDS: PANTOPRAZOLE 40MG VIAL (C9113 PER 1) IV SCH (09:08)
[2020-04-27] MEDS: SIMVASTATIN 20 MG TAB PO SCH (09:09)
[2020-04-27] MEDS: OLANZapine 10 MG TAB PO SCH (09:09)
[2020-04-27] MEDS: CitaloPRAM (CeleXA) 20 MG TAB PO SCH (09:09)
[2020-04-27] MEDS: CARVedilol 12.5 MG TAB PO SCH (09:09)
[2020-04-27] MEDS: VITAMIN D 1,000 INTERNATIONAL UNITS TABLET PO SCH (09:09)
[2020-04-27] MEDS ORDERED: lisinopriL 40 MG TAB PO ONE (10:00)
[2020-04-27] MEDS ORDERED: **hydrALAZINE** 50 MG TAB PO ONE (10:00)
[2020-04-27 10:01] VITALS: BP 184/98
[2020-04-27 10:08] VITALS: BP 184/98
[2020-04-27] MEDS ORDERED: SUCR1TAB56 PO (10:10)
[2020-04-27] MEDS ORDERED: PANT40TA29 PO (10:10)
[2020-04-27] MEDS ORDERED: LISI40TA PO (10:10)
[2020-04-27] MEDS ORDERED: LEVO500T3 PO (10:10)
[2020-04-27] MEDS ORDERED: HYDR50TA PO (10:10)
[2020-04-27 11:33] VITALS: BP 164/82
--- NOTE | 2020-04-27 12:40 | DS.PDOC ---
Discharge Summary General Date of Admission Apr 24, 2020 at 11:04 Date of Discharge 04/27/20 Discharge Summary PROCEDURES PERFORMED DURING STAY: [None]. ADMITTING DIAGNOSES: Abdominal pain Chest pain Diabetes Hypertension/hypertensive urgency Bipolar d/o / PTSD UTI DISCHARGE DIAGNOSES: Abdominal pain Chest pain Diabetes Hypertension/hypertensive urgency Bipolar d/o / PTSD UTI COMPLICATIONS/CHIEF COMPLAINT: Epigastric Abdominal Pain. HISTORY OF PRESENT ILLNESS:59-year-old female with past medical history of tobacco use, hx of pancreatitis, diabetes mellitus type 2, hypertension, bipolar disorder, PTSD admitted under observation status for abdominal pain r/o acute pancreatitis vs. gastric ulcer, chest pain. HOSPITAL COURSE: During hospital stay following issue addressed Abdominal pain Most likely gastritis versus stomach ulcer, peptic ulcer Patient stated that she used ibuprofen and the pain usually exacerbated after meal Continue PPI H. pylori negative Patient will need endoscopy in the outpatient settings Chest pain Resolved Trop negative EKG negative for acute ischemic changes Diabetes Poorly controlled Diabetes diet Insulin sliding scale Patient will need close follow-up with PCP Hypertension/hypertensive urgency Blood pressure elevated I added chlorthalidone, hydralazine and lisinopril Close follow-up with PCP Bipolar d/o / PTSD C/w home meds F/u with o/p psychiatry UTI UA shows pyuria Patient has urinary frequency Continue ceftriaxone DISCHARGE MEDICATIONS: Please see below. ALLERGIES: Please see below. PHYSICAL EXAMINATION ON DISCHARGE: VITAL SIGNS: Please see below. GENERAL APPEARANCE: NAD HEENT: no scleral icterus, no JVD, EOMI CARDIOVASCULAR: S1S2 LUNGS: CTA ABDOMEN: Mild tenderness in epigastric area MUSCULOSKELETAL: no cyanosis, no swelling INTEGUMENT: no generalized palor NEUROLOGICAL: cranial nerve function from 2-12 intact intact, follows commands, speech not dysarthric LABORATORY DATA: Please see below. IMAGING: [facility] NAME: MAKSIM SCHULZ DATE OF : 1960 AGE: 59 SEX: F REPORT #: [id number] ROOM: M ED TECHNOLOGIST: AMBROSE DOCTOR: TOM MACDONALD PA-C Ordered for Date&Time: 04/24/20 1328 cc: [~ rep ct ivnm] Service Date&Time: 04/24/20 1345 This report is in Signed status. If this report is in a DRAFT status it has not yet been reviewed by the radiologist for accuracy. Thank you for having your radiology procedures performed at [facility] RADIOLOGY REPORT Date&Time printed: [~ rep prt dt last] [~ rep prt tm last] Page 2 of [address] [address] RADIOLOGY REPORT This report is in Signed status. If this report is in a DRAFT status it has not yet been reviewed by the radiologist for accuracy. Thank you for having your radiology procedures performed at [facility] RADIOLOGY REPORT Date&Time printed: [~ rep prt dt last] [~ rep prt tm last] Page 1 of 1 COMPARISON: 04/19/2020 TECHNIQUE: Axial contrast-enhanced images from the lung bases to the pubic symphysis using 100 cc Isovue 370 intravenous contrast material. Coronal and sagittal reformations obtained.. This CT examination was performed using the following dose reduction techniques: Automated exposure control, adjustment of mA and/or kv according to the patient's size, and the use of iterative reconstruction technique. FINDINGS: Liver, spleen, pancreas, gallbladder, bilateral adrenal glands and kidneys are essentially normal. Few bilateral renal cysts are again noted and unchanged. The enteric system including stomach, small, and large bowel appears normal. No evidence for obstruction or acute inflammatory process. Normal terminal ileum and appendix are identified in the right lower quadrant. Pelvis demonstrates normal bladder and age-appropriate uterus/adnexa. No ascites. No free air. No intraperitoneal or retroperitoneal adenopathy. Abdominal aorta and vasculature appear normal. Musculoskeletal structures are intact and without acute osseous abnormality. IMPRESSION: No acute abdominopelvic pathology appreciated. No ascites. No focal inflammatory stranding. No adenopathy. No free air. <Electronically signed by Eric Salgado > 04/24/20 1359 DD: Eric Salgado MD 04/24/20 135 DT: RILEY 04/24/20 135 DS: MELISSA 04/24/20 1356 04/24/20 135 [~ rep ct labl] PROGNOSIS: Fair ACTIVITY: [As tolerated]. DIET: Cardiac/diabetes DISPOSITION: Home DISCHARGE INSTRUCTIONS: Stop smoking ITEMS TO FOLLOWUP ON ON OUTPATIENT: Follow-up with aircraft communicator for endoscopy and colonoscopy Follow-up with PCP for better control of blood pressure and diabetes DISCHARGE CONDITION: [Stable]. TIME SPENT ON DISCHARGE: Greater than 40 minutes. Vital Signs/I&Os Vital Signs Date Time Temp Pulse Resp B/P (MAP) Pulse Ox O2 Delivery O2 Flow Rate FiO2 04/27/20 11:33 164/82 (109) 04/27/20 09:08 88 04/27/20 06:00 97.9 18 98 Room Air I&O- Last 24 Hours up to 6 AM 04/27/20 06:00 Intake Total 2800 ml Output Total 4875 ml Balance -2075 ml Laboratory Data Labs 24H Laboratory Tests 2 04/26/20 16:52: Bedside Glucose (Misc Panel) 353H 04/26/20 21:13: Bedside Glucose (Misc Panel) 317H 04/27/20 05:39: Anion Gap 6L, Glomerular Filtration Rate > 60.0, Calcium Level 9.2, Total Bilirubin 0.2, Aspartate Amino Transf (AST/SGOT) 9, Alanine Aminotransferase (ALT/SGPT) 11L, Alkaline Phosphatase 101, Total Protein 6.7, Albumin 3.0L, Albumin/Globulin Ratio 0.8L 04/27/20 05:40: Nucleated Red Blood Cells % (auto) 0.0 04/27/20 11:30: Bedside Glucose (Misc Panel) 423H CBC/BMP Laboratory Tests 04/27/20 05:39 04/27/20 05:40 FSBS Laboratory Tests Test 04/26/20 16:52 04/26/20 21:13 04/27/20 11:30 Range/Units Bedside Glucose (Misc Panel) 353 317 423 80-115 MG/DL Microbiology Microbiology 04/24/20 Urine Culture - Final, Complete Enterobacter Aerogenes Discharge Medications Scheduled Alogliptin Benzoate (Alogliptin) 12.5 Mg Tablet, 12.5 MG PO DAILY, (Reported) Amitriptyline HCl (Amitriptyline HCl) 10 Mg Tablet, 20 MG PO QHS, (Reported) Amlodipine Besylate (Amlodipine Besylate) 10 Mg Tablet, 10 MG PO DAILY, (Reported) Aspirin (Aspirin EC) 81 Mg Tablet.dr, 162 MG PO DAILY, (Reported) Carvedilol (Carvedilol) 25 Mg Tablet, 25 MG PO BID, (Reported) Cholecalciferol (Vitamin D3) (Vitamin D3) 1,000 Unit Tablet, 2,000 UNITS PO DAILY, (Reported) Citalopram Hydrobromide (Citalopram HBr) 40 Mg Tablet, 20 MG PO DAILY, (Reported) Hydralazine HCl (Hydralazine HCl) 50 Mg Tablet, 50 MG PO BID Levofloxacin (Levofloxacin) 500 Mg Tablet, 1 TAB PO DAILY Lisinopril (Lisinopril) 40 Mg Tablet, 40 MG PO DAILY Metformin HCl (Metformin HCl) 850 Mg Tablet, 850 MG PO TID, (Reported) Olanzapine (Olanzapine) 20 Mg Tablet, 20 MG PO DAILY, (Reported) Pantoprazole Sodium (Pantoprazole Sodium) 40 Mg Tablet.dr, 40 MG PO DAILY Pregabalin (Pregabalin) 300 Mg Capsule, 300 MG PO BID, (Reported) Simvastatin (Simvastatin) 40 Mg Tablet, 20 MG PO DAILY, (Reported) Sucralfate (Sucralfate) 1 Gm Tablet, 1 GM PO QID Scheduled PRN Docusate Sodium (Docusate Sodium) 100 Mg Capsule, 100 MG PO BID PRN for CONSTIPATION, (Reported) Fluticasone Propionate (Fluticasone Propionate) 16 Gm [place].susp, 1 SPRAY [place]AR[place] DAILY PRN for CONGESTION, (Reported) Lorazepam (Ativan) 0.5 Mg Tablet, 0.5 MG PO BID PRN for ANXIETY, (Reported) Ondansetron (Ondansetron Odt) 8 Mg Tab.rapdis, 8 MG PO Q6H PRN for NAUSEA OR VOMITING, (Reported) Allergies Coded Allergies: diazepam (Verified Allergy, Intermediate, hyperactivity, 04/19/20) sulfamethoxazole (Verified Allergy, Intermediate, rash, 04/19/20) trimethoprim (Verified Allergy, Intermediate, rash, 04/19/20) PRASHANTH LEE DO Apr 27, 2020 12:40
[2020-04-27] MEDS ORDERED: **hydrALAZINE** 50 MG TAB PO SCH (16:00)
[2020-04-28] MEDS ORDERED: lisinopriL 40 MG TAB PO SCH (09:00)
== END 2020-04-27 12:53 | disposition home or self-care (01) ==
LOC: M ED 11:03 → M ED INP 11:04 → ENRESERV 15:39 → M MSPAV 16:14
PROVIDERS: ADMIT Internal Medicine; ATTEND Internal Medicine
DX: R10.13 Epigastric pain (principal); R07.9 Chest pain, unspecified; E11.9 Type 2 diabetes mellitus without complications; I16.0 Hypertensive urgency; I10 Essential (primary) hypertension; F31.9 Bipolar disorder, unspecified; F43.10 Post-traumatic stress disorder, unspecified; N39.0 Urinary tract infection, site not specified; Z79.84 Long term (current) use of oral hypoglycemic drugs; Z79.899 Other long term (current) drug therapy; Z88.8 Allergy status to other drugs, medicaments and biological substances; Z88.2 Allergy status to sulfonamides; Z79.82 Long term (current) use of aspirin; F17.218 Nicotine dependence, cigarettes, with other nicotine-induced disorders; E66.9 Obesity, unspecified
CPT/HCPCS: 36415; 74177; 80047; 80053; 80061; 80076; 81001; 82550; 82553; 83036; 83605; 83690; 84484; 85025; 85027; 85610; 85730; 86677; 87088; 87186; 93005; 96361; 96365; 96366; 96372; 96375; 96376; 99284; C9113; G0378; J0696; J1650; J1885; J2270; Q9967

== ENCOUNTER 2020-05-09 19:08 | Inpatient (IN) | payer OTHER ==
[~2020-05-09] VITALS: Ht 175.3 cm; Wt 99.1 kg
[~2020-05-09 19:08] MED LIST changes: +ALOG12.5 PO; +AMIT10TA PO; +AMLO1TAB25 PO; +ASPI-551 PO; +ATIV1TAB10 PO; +CARV25TA PO; +CITA40TA4 PO; +D31000TA2 PO; +DOCU100C16 PO; +FLUTISP; +HYDR50TA PO; +IBUP-1022 PO; +LEVO500T3 PO; +LISI40TA PO; +METF850T4 PO; +OLAN20TA14 PO; +ONDA8TAB8 PO; +PANT40TA29 PO; +PREG300C PO; +SIMV40TA20 PO; +SUCR1TAB56 PO
[2020-05-09 20:38] LABS: BASO # 0.1 10^3/uL (0.0-0.2); BASO % 0.4 % (0.0-1.0); EOS % 0.2 % (0.0-3.0); HEMATOCRIT 43.8 % (36.0-47.0); HEMOGLOBIN 13.3 g/dl (12.0-15.5); LYMPH # 3.1 10^3/uL (1.5-5.0); LYMPH % 18.3 % (24.0-44.0); MEAN CORPUSCULAR HEMOGLOBIN 25.3 pg (27.0-33.0); MEAN CORPUSCULAR HGB CONC 30.4 g/dl (32.0-36.5); MEAN CORPUSCULAR VOLUME 83.4 fl (80.0-96.0); MONO # 1.1 10^3/uL (0.0-0.8); MONO % 6.4 % (0.0-5.0); NEUTROPHILS # 12.5 10^3/uL (1.5-8.5); NEUTROPHILS % 74.1 % (36.0-66.0); PLATELET COUNT, AUTOMATED 363 10^3/uL (150-450); RED BLOOD COUNT 5.25 10^6/uL (4.00-5.40); WHITE BLOOD COUNT 16.8 10^3/uL (4.0-10.0)
--- NOTE | 2020-05-09 20:50 | REPVR ---
PROCEDURE INFORMATION: Exam: XR Chest, 1 View Exam date and time: 05/09/2020 8:41 PM Age: 59 years old Clinical indication: Cough and dyspnea; Additional info: Dyspnea/cough TECHNIQUE: Imaging protocol: XR of the chest Views: 1 view. COMPARISON: No relevant prior studies available. FINDINGS: Lungs: Unremarkable. No consolidation. Pleural space: Unremarkable. No pleural effusion. No pneumothorax. Heart/Mediastinum: Unremarkable. No cardiomegaly. Bones/joints: Unremarkable. IMPRESSION: No acute findings. Electronically signed by: Sergio Burrell On 05/09/2020 20:49:55 PM
[2020-05-09] MEDS ORDERED: HumaLOG INSULIN (NovoLOG) PER UNIT SC SCH (21:00)
[2020-05-09 21:22] LABS: ALBUMIN 3.2 GM/DL (3.2-5.2); ALT/SGPT 7 U/L (12-78); BILIRUBIN,DIRECT 0.1 MG/DL (0.0-0.2); BILIRUBIN,TOTAL 0.2 MG/DL (0.2-1.0); BLOOD UREA NITROGEN 21 MG/DL (7-18); CALCIUM LEVEL 9.9 MG/DL (8.8-10.2); CARBON DIOXIDE LEVEL 20 MEQ/L (21-32); CHLORIDE LEVEL 99 MEQ/L (98-107); CK-MB VALUE MASS 1.1 NG/ML (<3.6); CPK CREATINE PHOSPHOKINASE 94 U/L (26-192); CREATININE FOR GFR 2.18 MG/DL (0.55-1.30); GLOMERULAR FILTRATION RATE 29.6 (>45); GLUCOSE, FASTING 572 MG/DL (70-100); LIPASE 167 U/L (73-393); MB/CK RELATIVE INDEX 1.17 (< OR =4); NT-PRO BNP 128 PG/ML (<125); POTASSIUM SERUM 4.8 MEQ/L (3.5-5.1); SODIUM LEVEL 131 MEQ/L (136-145); TOTAL PROTEIN 7.5 GM/DL (6.4-8.2); TROPONIN I < 0.02 NG/ML (< 0.10)
--- NOTE | 2020-05-09 22:22 | REPVR ---
PROCEDURE INFORMATION: Exam: CT Abdomen And Pelvis Without Contrast Exam date and time: 05/09/2020 10:13 PM Age: 59 years old Clinical indication: Abdominal pain; Generalized; Additional info: R/O pyelonephritis TECHNIQUE: Imaging protocol: Computed tomography of the abdomen and pelvis without contrast. Radiation optimization: All CT scans at this facility use at least one of these dose optimization techniques: automated exposure control; mA and/or kV adjustment per patient size (includes targeted exams where dose is matched to clinical indication); or iterative reconstruction. COMPARISON: CT ABD/PEL W/IV CONTRAST ONLY 04/24/2020 1:31 PM FINDINGS: Lungs: Bibasilar atelectasis. Liver: Normal. No mass. Gallbladder and bile ducts: The gallbladder is incompletely distended. This is most likely related to incomplete fasting. Clinical correlation to exclude gallbladder pathology suggested. Pancreas: Normal. No ductal dilation. Spleen: Normal. No splenomegaly. Adrenal glands: Normal. No mass. Kidneys and ureters: No perinephric stranding or mass demonstrated. If there is strong suspicion for pyelonephritis exists correlation with post-contrast imaging suggested. Stomach and bowel: Unremarkable. No obstruction. No mucosal thickening. Appendix: No evidence of appendicitis. Intraperitoneal space: Unremarkable. No free air. No significant fluid collection. Vasculature: Unremarkable. No abdominal aortic aneurysm. Lymph nodes: Unremarkable. No enlarged lymph nodes. Urinary bladder: Unremarkable as visualized. Reproductive: Unremarkable as visualized. Bones/joints: Moderate to severe central spinal stenosis L3-L4 and L4-L5. Bulging disc annulus L5-S1. Soft tissues: There is a small umbilical hernia. There is no evidence of incarceration. IMPRESSION: 1. The gallbladder is incompletely distended. This is most likely related to incomplete fasting. Clinical correlation to exclude gallbladder pathology suggested. 2. No perinephric stranding or mass demonstrated. If there is strong suspicion for pyelonephritis exists correlation with post-contrast imaging suggested. Electronically signed by: Sergio Burrell On 05/09/2020 22:21:39 PM
[2020-05-09] MEDS ORDERED: PANT40TA29 PO (22:33)
[2020-05-09] MEDS ORDERED: LISI40TA PO (22:33)
[2020-05-09] MEDS ORDERED: CARA1TAB6 PO (22:33)
[2020-05-09] MEDS ORDERED: HYDR-3911 PO (22:34)
[2020-05-09] MEDS ORDERED: PATIENT COMMENT (22:37)
[2020-05-09] MEDS ORDERED: NS 1,000 ML IV ONE (22:45)
[2020-05-09 22:49] LABS: APPEARANCE, URINE TURBID (CLEAR); BACTERIA, URINE AUTO 2+ (NEGATIVE); BILIRUBIN, URINE AUTO NEGATIVE (NEGATIVE); BLOOD, URINE BLOOD 3+ (NEGATIVE); COLOR, URINE YELLOW (YELLOW); GLUCOSE, URINE (UA) AUTO 3+ mg/dL (NEGATIVE); KETONE, URINE AUTO 1+ mg/dL (NEGATIVE); LEUKOCYTE ESTERASE, URINE AUTO 2+ (NEGATIVE); NITRITE, URINE AUTO NEGATIVE (NEGATIVE); PROTEIN, URINE AUTO 1+ mg/dL (NEGATIVE); RBC, URINE AUTO 43 /HPF (0-3); SPECIFIC GRAVITY URINE AUTO 1.025 (1.002-1.035); SQUAMOUS EPITHELIAL CELL UR AU 33 /HPF (0-6); UROBILINOGEN, URINE AUTO 0.2 mg/dL (0.0-2.0); WBC, URINE AUTO 39 /HPF (0-3)
[2020-05-09] MEDS ORDERED: HumuLIN R (REGULAR) INSULIN (NovoLIN R) **100U/ML** PER UNIT SC ONE (23:00)
--- NOTE | 2020-05-09 23:46 | HPEPDOC ---
[facility] Medical History & Physical Date of Admission May 09, 2020 Date of Service: May 09, 2020 History and Physical CHIEF COMPLAINT: Epigastric Abdominal pain HISTORY OF PRESENT ILLNESS: 59F PMhx IDDM, HTN, Bipolar, PTSD, pancreatitis here with epigastric abdominal pain. Patient was recently discharged with the same complaint and recommended to have an outpatient EGD for suspected gastritis versus peptic ulcer disease. Today patient tells me that since being discharged she does not feel any better her symptoms have persisted and she continues to have the same pain as before. Tells me she continues to take ibuprofen to attempt to alleviate her pain but it seems to make it worse she also says that pain is worse with food. Denies hematemesis. At the last visit patient was diagnosed with enterococcus UTI and treated with Levaquin with 2 more doses to be taken upon discharge. Patient seems confused and is unsure if she picked up her medications and took them. Denies dysuria at this time, no fever or chills and no flank pain. Regarding her diabetes patient tells me she's not very good at remembering to take her insulin but believes she took it regularly over the past 3 days except for this evening. She is unsure what type of insulin she takes but states she takes 34 units twice daily. In the ED patient was found to have a blood sugar 572 but not in DKA and was given 10 units of insulin. UA was collected and returned positive. CT abdomen/pelvis was completed. Chest x-ray was unrevealing. PAST MEDICAL HISTORY: Diabetes Hypertension Bipolar PTSD Pancreatitis PAST SURGICAL HISTORY: 2 sections SOCIAL HISTORY: Denies alcohol use Smokes 1-1/2 packs per day for the past ~40 years Denies illicit drug use FAMILY HISTORY: Reviewed and noncontributory ALLERGIES: Please see below. REVIEW OF SYSTEMS: 10 point review of systems completed and is negative other than stated in HPI. HOME MEDICATIONS: Please see below. PHYSICAL EXAMINATION: Constitutional: Awake and alert, in no apparent distress ENT: Sclera are clear. Mucosa is moist. Respiratory: Lungs CTA bilaterally. No respiratory distress. No use of accessory muscles. Cardiovascular: RRR S1 and S2 are normal, no murmur Gastrointestinal: Abdomen is soft, non distended, mild epigastric tenderness, no tenderness elsewhere. No rebound tenderness. BS present. Musculoskeletal: No edema. RUE 5/5, LUE 5/5, BLE 5/5. No CVA tenderness Neurologic: No focal neurological deficit. Mental Status: A&O x3, normal affect LABORATORY DATA: See below. IMAGING: Exam: CT Abdomen And Pelvis Without Contrast Exam date and time: 05/09/2020 10:13 PM IMPRESSION: 1. The gallbladder is incompletely distended. This is most likely related to incomplete fasting. Clinical correlation to exclude gallbladder pathology suggested. 2. No perinephric stranding or mass demonstrated. If there is strong suspicion for pyelonephritis exists correlation with post-contrast imaging suggested. Exam: XR Chest, 1 View Exam date and time: 05/09/2020 8:41 PM IMPRESSION: No acute findings. MICROBIOLOGY: Please see below. ASSESSMENT/PLAN 59F PMhx IDDM, HTN, Bipolar, PTSD, pancreatitis here with epigastric abdominal pain suspected to be peptic ulcer disease versus pill-induced gastritis. Patient was found to have uncontrolled glycemia 572 in the ED not in DKA. Also found to have an ROBBIN. Patient will be admitted to medical unit for EGD, for uncontrolled hyperglycemia and ROBBIN. # Epigastric abdominal pain: This is her second visit in a short duration of time with this complaint. I suspect pill-induced esophagitis due to NSAID use vs peptic ulcer due to association with food. Contact GI/surgery for EGD in AM. CLD. Protonix IV. H Pylori negative at last visit done by IgG Ab. Trop negative, trend. Lipase 167. CT abdomen/pelvis reviewed. # ROBBIN: Cr 2.18 on admit. Suspect prerenal dehydration from poor oral intake due to abdominal pain. Fu FeNa. IVFs. Avoid nephrotoxins. Trend BMP. # Elevated lactic acid: initially 3.3, suspect this is from dehydration. Trend. IVFs. # IDDM: uncontrolled. A1c. Poor compliance. Levemir 34BID. ISS. Hypoglycemic precautions. Frequent Accu-Cheks. Needs good PCP followup on discharge. [facility] lantus 34U BID and lispro per sliding scale. # UTI: leukocytosis 16.8 on admit. Recent UTI on last admission Enterobacter susceptible to ceftriaxone. UA back showing still has UTI. I suspect patient was poorly compliant and did not complete her course of antibiotics as she was not sure if she took them. Fu UCx. ABx IV Ceftriaxone. # Hyponatremia: 131 on admit. IVFs NS. Monitor. # HTN: BP ok. Reduce coreg dose, hold other home meds. Monitor and titrate. # Bipolar/PTSD: Continue psych meds. Fu psych OP. # Smoker: Doesn't want nicotine patch. Counseled to quit smoking. # Obesity: BMI 33. Complicates care. # DVT prophylaxis: heparin A Yousef Hospitalist Vital Signs Vital Signs Date Time Temp Pulse Resp B/P (MAP) Pulse Ox O2 Delivery O2 Flow Rate FiO2 05/09/20 19:49 Room Air 05/09/20 19:49 98.8 87 18 97 05/09/20 19:26 103/59 (74) Laboratory Data Labs 24H Laboratory Tests 2 05/09/20 20:10: Immature Granulocyte % (Auto) 0.6, Neutrophils (%) (Auto) 74.1H, Lymphocytes (%) (Auto) 18.3L, Monocytes (%) (Auto) 6.4H, Eosinophils (%) (Auto) 0.2, Basophils (%) (Auto) 0.4, Neutrophils # (Auto) 12.5H, Lymphocytes # (Auto) 3.1, Monocytes # (Auto) 1.1H, Eosinophils # (Auto) 0.0, Basophils # (Auto) 0.1, Nucleated Red Blood Cells % (auto) 0.0, Anion Gap 12, Glomerular Filtration Rate 29.6L, Lactic Acid Level 3.3*H, Calcium Level 9.9, Total Bilirubin 0.2, Direct Bilirubin 0.1, Aspartate Amino Transf (AST/SGOT) 5L, Alanine Aminotransferase (ALT/SGPT) 7L, Alkaline Phosphatase 112, Total Creatine Kinase 94, Creatine Kinase MB 1.1, Creatine Kinase MB Relative Index 1.17, Troponin I < 0.02, JZ-Uce-Q-Type Natriuretic Peptide 128H, Total Protein 7.5, Albumin 3.2, Albumin/Globulin Ratio 0.7L, Lipase 167 05/09/20 20:28: POC pH (Misc Panel) 7.324L, POC Base Excess (Misc Panel) -8.0L, POC Saturated Percent O2 (Misc) 92L, POC pO2 (Misc Panel) 68.0L, POC pCO2 (Misc Panel) 35.2, POC HCO3 (Misc Panel) 18.3L, POC Total CO2 (Misc Panel) 19.0L 05/09/20 22:35: Urine Color YELLOW, Urine Appearance TURBIDH, Urine pH 5.0, Urine Specific [place] 1.025, Urine Protein 1+H, Urine Glucose (Auto)(UA) 3+H, Urine Ketones (Auto) 1+H, Urine Blood 3+H, Urine Nitrite NEGATIVE, Urine Bilirubin NEGATIVE, Urine Urobilinogen 0.2, Urine Leukocyte Esterase (Auto) 2+H, Urine WBC (Auto) 39H, Urine RBC (Auto) 43H, Urine Hyaline Casts (Auto) 10, Urine Bacteria (Auto) 2+H, Urine Squamous Epithelial Cells 33, Urine Sperm (Auto) CBC/BMP Laboratory Tests 05/09/20 20:10 Microbiology Microbiology 05/09/20 Respiratory Virus Panel (PCR) (ELADIA), Received Pending 05/09/20 Urine Culture, Received Pending 05/09/20 Blood Culture, Received Pending 05/09/20 Blood Culture, Received Pending Home Medications Scheduled Alogliptin Benzoate (Alogliptin) 12.5 Mg Tablet, 12.5 MG PO DAILY Amitriptyline HCl (Amitriptyline HCl) 10 Mg Tablet, 20 MG PO QHS Amlodipine Besylate (Amlodipine Besylate) 10 Mg Tablet, 10 MG PO DAILY Aspirin (Aspirin EC) 81 Mg Tablet.dr, 162 MG PO DAILY Carvedilol (Carvedilol) 25 Mg Tablet, 25 MG PO BID Cholecalciferol (Vitamin D3) (Vitamin D3) 1,000 Unit Tablet, 2,000 UNITS PO DAILY Citalopram Hydrobromide (Citalopram HBr) 40 Mg Tablet, 20 MG PO DAILY Hydralazine HCl (Hydralazine HCl) 50 Mg Tablet, 50 MG PO BID Insulin Glargine,Hum.rec.anlog (Lantus Solostar) 100 Unit/1 Ml Insuln.pen, 40 UNITS SC BID Insulin Human Lispro (Novolog) 100 Unit/1 Ml Vial, 1 DOSE SC AC PER SLIDING SCALE Levofloxacin (Levofloxacin) 750 Mg Tablet, 750 MG PO DAILY Lisinopril (Lisinopril) 40 Mg Tablet, 40 MG PO DAILY Loratadine (Loratadine) 10 Mg Tablet, 10 MG PO DAILY Magnesium Oxide (Magnesium Oxide) 400 Mg Tablet, 400 MG PO BID for constipation Melatonin (Melatonin) 3 Mg Tablet, 3 MG PO QHS Metformin HCl (Metformin HCl) 850 Mg Tablet, 850 MG PO TID Olanzapine (Olanzapine) 20 Mg Tablet, 20 MG PO QHS Pantoprazole Sodium (Pantoprazole Sodium) 40 Mg Tablet.dr, 40 MG PO BID Pregabalin (Pregabalin) 300 Mg Capsule, 300 MG PO BID Simvastatin (Simvastatin) 40 Mg Tablet, 20 MG PO QHS Sucralfate (Carafate) 1 Gm Tablet, 1 GM PO ACHS Scheduled PRN Acetaminophen (Acetaminophen) 325 Mg Tablet, 650 MG PO Q6HP PRN for PAIN OR FEVER Capsaicin (Capsaicin) 42.5 Gm Cream..g., 1 DOSE EXT BID PRN for PAIN Clobetasol Propionate (Temovate) 15 Gm Oint...g., 1 DOSE TOP BID PRN for ITCH/RASH Docusate Sodium (Docusate Sodium) 100 Mg Capsule, 100 MG PO BID PRN for CONSTIPATION Fluticasone Propionate (Fluticasone Propionate) 16 Gm [place].susp, 1 SPRAY NA DAILY PRN for CONGESTION Guaifenesin (Guaifenesin) 100 Mg/5 Ml Liquid, 10 ML PO Q4H PRN for CONGESTION Lorazepam (Ativan) 0.5 Mg Tablet, 0.5 MG PO BID PRN for ANXIETY Miscellaneous Medications [Patient Comment] PATIENT UNAVAILABLE. COMPLETED VIA EXTERNAL MED HISTORY, DISCHARGE PAPERWORK 04/27/2020 AND CALL TO PHARMACY AT [place] Allergies Coded Allergies: sulfamethoxazole (Verified Allergy, Mild, rash, 05/09/20) trimethoprim (Verified Allergy, Mild, rash, 05/09/20) diazepam (Verified Adverse Reaction, Mild, hyperactivity, 05/09/20) codeine (Unverified Adverse Reaction, Unknown, 05/09/20) "reversed reaction." A-FIB/CHADSVASC A-FIB History Current/History of A-Fib/PAF?: No YADIEL FINNEGAN MD May 09, 2020 23:46
--- NOTE | 2020-05-10 01:05 | ECGEPIP ---
[facility] - ED Test Date: 2020-05-09 Pat Name: MAKSIM SCHULZ Department: Room: - Gender: Female Dub Room Engineer: elijah : 1960 Requested By: Robinson Ruiz Order Number: [id number] Reading MD: Robinson Lucero Measurements Intervals [place] Rate: 88 P: 39 W[place]: 160 QRS: 12 QRSD: 88 T: 31 QT: 393 QTc: 477 Interpretive Statements SINUS RHYTHM NSTTW ABNORMALITY(S) SIMILAR TO 04/24/20 Electronically Signed on 05-10-2020 1:05:44 EST by Robinson Lucero
[2020-05-10] MEDS ORDERED: DOCUSATE SODIUM 100 MG CAP PO PRN (02:00)
[2020-05-10] MEDS ORDERED: HumuLIN R (REGULAR) INSULIN (NovoLIN R) **100U/ML** PER UNIT SC ONE (02:00)
[2020-05-10] MEDS ORDERED: MOM 30ML SUSPENSION UDC PO PRN (02:00)
[2020-05-10] MEDS ORDERED: DEXTROSE 50% 50 ML SYRINGE IV PRN (02:15)
[2020-05-10] MEDS ORDERED: GLUCOSE 4GM CHEW TABLET PO PRN (02:15)
[2020-05-10] MEDS ORDERED: GLUCAGON INJ 1MG VIAL SC PRN (02:15)
[2020-05-10] MEDS ORDERED: PANTOPRAZOLE 40MG VIAL (C9113 PER 1) IV ONE (02:30)
[2020-05-10] MEDS ORDERED: CAPS42.54 EXT (02:40)
[2020-05-10] MEDS ORDERED: INSUH10VL SC (02:40)
[2020-05-10] MEDS ORDERED: TEMO0.0517 TOP (02:40)
[2020-05-10] MEDS ORDERED: IBUP1TAB6 PO (02:40)
[2020-05-10] MEDS ORDERED: LORA-436 PO (02:40)
[2020-05-10] MEDS ORDERED: LANTINJ4 SC (02:40)
[2020-05-10] MEDS ORDERED: MELA3TAB7 PO (02:40)
[2020-05-10] MEDS ORDERED: GUAI5EL PO (02:40)
[2020-05-10] MEDS: AMITRIPTYLINE 10 MG TAB PO SCH ×2 (02:56→21:22)
[2020-05-10] MEDS: SIMVASTATIN 40 MG TAB PO SCH ×2 (02:56→21:22)
[2020-05-10] MEDS: NS 1,000 ML IV SCH ×3 (02:59→16:53)
[2020-05-10] MEDS ORDERED: LEVEMIR (INSULIN DETEMIR) 1 UNITS/0.01ML SC ONE (03:00)
[2020-05-10] MEDS: cefTRIAXone SOD 1 GM in D5W MINI-BAG PLUS 50 ML IV SCH (03:46)
[2020-05-10] MEDS: HumaLOG INSULIN (NovoLOG) PER UNIT SC SCH ×4 (07:30→21:00)
[2020-05-10] MEDS: CitaloPRAM (CeleXA) 20 MG TAB PO SCH (08:44)
[2020-05-10] MEDS: OLANZapine 10 MG TAB PO SCH (08:44)
[2020-05-10] MEDS: HEPARIN SOD (PORCINE) 5000UNITS/ML 1ML VIAL/SYRINGE SC SCH ×2 (08:50→21:22)
[2020-05-10] MEDS: PANTOPRAZOLE 40MG VIAL (C9113 PER 1) IV SCH (09:00)
[2020-05-10] MEDS ORDERED: CARVedilol 12.5 MG TAB PO SCH (09:00)
[2020-05-10] MEDS ORDERED: LEVEMIR (INSULIN DETEMIR) 1 UNITS/0.01ML SC SCH (09:00)
[2020-05-10] MEDS ORDERED: PANTOPRAZOLE 40MG VIAL (C9113 PER 1) IV SCH (09:00)
[2020-05-10] MEDS: CARVedilol 12.5 MG TAB PO SCH (09:00)
[2020-05-10 10:03] LABS: HEMATOCRIT 39.1 % (36.0-47.0); HEMOGLOBIN 12.4 g/dl (12.0-15.5); MEAN CORPUSCULAR HEMOGLOBIN 26.3 pg (27.0-33.0); MEAN CORPUSCULAR HGB CONC 31.7 g/dl (32.0-36.5); PLATELET COUNT, AUTOMATED 316 10^3/uL (150-450); RED BLOOD COUNT 4.71 10^6/uL (4.00-5.40); WHITE BLOOD COUNT 12.5 10^3/uL (4.0-10.0)
[2020-05-10 10:23] LABS: ALBUMIN 2.9 GM/DL (3.2-5.2); ALT/SGPT < 6 U/L (12-78); BILIRUBIN,TOTAL 0.2 MG/DL (0.2-1.0); BLOOD UREA NITROGEN 24 MG/DL (7-18); CALCIUM LEVEL 8.9 MG/DL (8.8-10.2); CARBON DIOXIDE LEVEL 21 MEQ/L (21-32); CHLORIDE LEVEL 108 MEQ/L (98-107); CREATININE FOR GFR 1.76 MG/DL (0.55-1.30); GLOMERULAR FILTRATION RATE 37.9 (>45); GLUCOSE, FASTING 266 MG/DL (70-100); POTASSIUM SERUM 3.7 MEQ/L (3.5-5.1); SODIUM LEVEL 138 MEQ/L (136-145); TOTAL PROTEIN 6.5 GM/DL (6.4-8.2); TROPONIN I < 0.02 NG/ML (< 0.10)
[2020-05-10 11:24] LABS: HEMOGLOBIN A1c 11.3 %
--- NOTE | 2020-05-10 13:35 | IPNPDOC ---
Date Seen The patient was seen on 05/10/20. Progress Note SUBJECTIVE: patient was seen and examined at bedside. Doing well. No acute events overnight, still in ER. CLD. Denies hemoptysis, dark stools. Reports coming to ER for worsening fatigue. OBJECTIVE PHYSICAL EXAMINATION: VITAL SIGNS: please see below General: NAD, comfortable HEENT: PERRLA, EOMI, sclerae clear Neck: supple, normal ROM, no JVD Respiratory: lungs CTAB, no wheeze, no rales, no crackles CVS: RRR, normal S1, S2, no murmurs Abdo: soft, no masses, no hepatosplenomegaly, BS+, mild epigastric tenderness Extremities: no edema, pulses 2+ MSK: no joint deformities, normal ROM Neuro: no focal neuro deficits, moving all 4 extremities, CN2-12 intact. Strength 5/5 in all 4 extremities. No nystagmus. Psych: calm, cooperative, AAO x 3 LABORATORY DATA, IMAGING STUDIES, MICROBIOLOGY: Please see below. DVT prophylaxis ordered?: Yes, heparin ASSESSMENT AND PLAN: 59-year-old female with a history of type 2 diabetes, hypertension, bipolar, PTSD, pancreatitis, and recent enterococcus UTI. Admitted to have peptic ulcer disease, possible gastritis. Patient admitted for management of uncontrolled hyperglycemia, ROBBIN as well as gastritis, likely requiring EGD this admission. PROBLEMS: # Epigastric abdominal pain: recurrent complaints. NSAID use vs peptic ulcer due to association with food. Protonix IV. H Pylori negative at last visit done by IgG Ab. Trop negative, trend. Lipase 167. CT abdomen/pelvis reviewed. # ROBBIN: Cr 2.18, improving with IVF. Suspect prerenal dehydration from poor oral intake due to abdominal pain. FeNa pre-renal. IVFs. Avoid nephrotoxins. Trend BMP. # Elevated lactic acid: s/p IVF. Repeat 1.9. # IDDM: uncontrolled. A1c 11.3. Poor compliance. Increase levemir to 40 mg SC BID. ISS. Hypoglycemic precautions. Frequent Accu-Cheks. Close PCP f/u on DC. # UTI: leukocytosis 16.8 on admit. UA+. Recently dx enterococcus UTI, treated with levaquin, suspect poor compliance. F/u repeat culture. C/w ceftriaxone based on prior sensitivities. # Hyponatremia: 131 on admit. IVFs NS. Monitor. # HTN: BP 104/55 this am. Hold BP meds. Takes amlodipine 10, lisinopril 40 mg daily, coreg 25 mg PO BID. # Bipolar/PTSD: Continue psych meds. Fu psych OP. # Smoker: Doesn't want nicotine patch. Counseled to quit smoking. # Obesity: BMI 33. Complicates care. # DVT prophylaxis: heparin VS, I&O, 24H, Fishbone Vital Signs/I&O Vital Signs Date Time Temp Pulse Resp B/P (MAP) Pulse Ox O2 Delivery O2 Flow Rate FiO2 05/10/20 12:15 82 18 96/51 (66) 95 Room Air 05/10/20 01:36 97.0 I&O- Last 24 Hours up to 6 AM 05/10/20 05:59 Intake Total 1050 ml Output Total 100 ml Balance 950 ml Laboratory Data 24H LABS Laboratory Tests 2 05/09/20 20:10: Immature Granulocyte % (Auto) 0.6, Neutrophils (%) (Auto) 74.1H, Lymphocytes (%) (Auto) 18.3L, Monocytes (%) (Auto) 6.4H, Eosinophils (%) (Auto) 0.2, Basophils (%) (Auto) 0.4, Neutrophils # (Auto) 12.5H, Lymphocytes # (Auto) 3.1, Monocytes # (Auto) 1.1H, Eosinophils # (Auto) 0.0, Basophils # (Auto) 0.1, Nucleated Red Blood Cells % (auto) 0.0, Anion Gap 12, Glomerular Filtration Rate 29.6L, Lactic Acid Level 3.3*H, Calcium Level 9.9, Total Bilirubin 0.2, Direct Bilirubin 0.1, Aspartate Amino Transf (AST/SGOT) 5L, Alanine Aminotransferase (ALT/SGPT) 7L, Al kaline Phosphatase 112, Total Creatine Kinase 94, Creatine Kinase MB 1.1, Creatine Kinase MB Relative Index 1.17, Troponin I < 0.02, FP-[id number]-[id number]-Type Natriuretic Peptide 128H, Total Protein 7.5, Albumin 3.2, Albumin/Globulin Ratio 0.7L, Lipase 167 05/09/20 20:28: POC pH (Misc Panel) 7.324L, POC Base Excess (Misc Panel) -8.0L, POC Saturated Percent O2 (Misc) 92L, POC pO2 (Misc Panel) 68.0L, POC pCO2 (Misc Panel) 35.2, POC HCO3 (Misc Panel) 18.3L, POC Total CO2 (Misc Panel) 19.0L 05/09/20 22:35: Urine Color YELLOW, Urine Appearance TURBIDH, Urine pH 5.0, Urine Specific [place] 1.025, Urine Protein 1+H, Urine Glucose (Auto)(UA) 3+H, Urine Ketones (Auto) 1+H, Urine Blood 3+H, Urine Nitrite NEGATIVE, Urine Bilirubin NEGATIVE, Urine Urobilinogen 0.2, Urine Leukocyte Esterase (Auto) 2+H, Urine WBC (Auto) 39H, Urine RBC (Auto) 43H, Urine Hyaline Casts (Auto) 10, Urine Bacteria (Auto) 2+H, Urine Squamous Epithelial Cells 33, Urine Sperm (Auto) , Urine Random Creatinine 158.0, Urine Random Sodium 18 05/10/20 00:48: Lactic Acid Followup at 4 Hours 1.9 05/10/20 01:33: Bedside Glucose (Misc Panel) 433H 05/10/20 03:24: Bedside Glucose (Misc Panel) 391H 05/10/20 07:14: Bedside Glucose (Misc Panel) 191H 05/10/20 09:35: Nucleated Red Blood Cells % (auto) 0.0, Anion Gap 9, Glomerular Filtration Rate 37.9L, Estimated Mean Plasma Glucose 278H, Hemoglobin A1c 11.3, Calcium Level 8.9, Total Bilirubin 0.2, Aspartate Amino Transf (AST/SGOT) < 3L, Alanine Aminotransferase (ALT/SGPT) < 6L, Alkaline Phosphatase 95, Troponin I < 0.02, Total Protein 6.5, Albumin 2.9L, Albumin/Globulin Ratio 0.8L 05/10/20 12:25: Bedside Glucose (Misc Panel) 277H CBC/BMP Laboratory Tests 05/09/20 20:10 05/10/20 09:35 Microbiology Microbiology 05/09/20 Respiratory Virus Panel (PCR) ([facility]) - Final, Complete 05/09/20 Urine Culture, Received Pending 05/09/20 Blood Culture, Received Pending 05/09/20 Blood Culture, Received Pending NEW MCLAUGHLIN MD May 10, 2020 13:35
[2020-05-10 14:40] VITALS: BP 134/66
[2020-05-10] MEDS: SUCRALFATE SUSP 1GM/10ML UD PO SCH ×2 (17:43→21:22)
[2020-05-10] MEDS: LEVEMIR (INSULIN DETEMIR) 1 UNITS/0.01ML SC SCH (21:24)
[2020-05-10 22:00] VITALS: BP 132/82
[2020-05-11] MEDS: FLUTICASONE PROP 0.05% NASAL SPRAY 16 GM (FLONASE) PRN ×2 (00:51→21:00)
[2020-05-11] MEDS: NS 1,000 ML IV SCH ×3 (00:53→23:40)
[2020-05-11] MEDS ORDERED: MORPHINE 2 MG/ML 1ML VIAL (J2270) IV ONE (02:45)
[2020-05-11] MEDS: ACETAMINOPHEN TAB 650MG DOSE (2X325MG) PO PRN ×2 (02:53→17:26)
[2020-05-11] MEDS: cefTRIAXone SOD 1 GM in D5W MINI-BAG PLUS 50 ML IV SCH (02:53)
[2020-05-11 06:00] VITALS: BP 151/79
[2020-05-11] MEDS: HumaLOG INSULIN (NovoLOG) PER UNIT SC SCH ×4 (07:30→20:54)
[2020-05-11] MEDS: PANTOPRAZOLE 40MG VIAL (C9113 PER 1) IV SCH (08:47)
[2020-05-11] MEDS: CitaloPRAM (CeleXA) 20 MG TAB PO SCH (08:47)
[2020-05-11] MEDS: HEPARIN SOD (PORCINE) 5000UNITS/ML 1ML VIAL/SYRINGE SC SCH ×2 (08:49→20:55)
[2020-05-11] MEDS: LEVEMIR (INSULIN DETEMIR) 1 UNITS/0.01ML SC SCH ×2 (08:49→20:54)
[2020-05-11] MEDS: OLANZapine 10 MG TAB PO SCH (09:01)
[2020-05-11] MEDS: CARVedilol 12.5 MG TAB PO SCH ×2 (09:03→20:59)
--- NOTE | 2020-05-11 09:22 | CR ---
DATE OF CONSULTATION: 05/10/2020 REASON FOR CONSULTATION: Epigastric pain. HISTORY OF PRESENT ILLNESS: The patient is a 59-year-old woman admitted to the hospitalist service on the 09 of May. The patient had been admitted on the 24 of April with epigastric abdominal pain. During that hospitalization, she was treated for presumed gastritis/peptic ulcer disease and was subsequently discharged home with additional medications for her blood pressure and a three- day prescription for Levaquin for a urinary tract infection (UTI). She was taking Carafate and Protonix at the time of her discharge. The admission history and physical reports that she had returned with epigastric abdominal pain that had not seemed to improve on outpatient treatment. When I spoke to her today, she reports that she actually came in because of shortness of breath. She reports that she still has had the epigastric pain, though this seems to have diminished somewhat in her mind at this point. Her other medical issues include diabetes, hypertension, bipolar disorder, post- traumatic stress disorder and she reportedly has a distant history of pancreatitis. Because of her persistent epigastric discomfort, I am now consulted to consider upper endoscopy. ALLERGIES: The patient's medical record indicates allergies to CODEINE, DIAZEPAM, SULFAMETHOXAZOLE and TRIMETHOPRIM. MEDICATIONS PRIOR TO ADMISSION: Include: - Alogliptin - Amitriptyline - Amlodipine - Aspirin - Capsaicin cream - Carvedilol twice daily - Cholecalciferol - Citalopram - Clobetasol ointment - Docusate - Fluticasone nasal spray - Guaifenesin - Hydralazine - Ibuprofen - Glargine insulin - NovoLog insulin - Lisinopril - Loratadine - Lorazepam - Melatonin - Metformin - Olanzapine - Protonix - Pregabalin - Simvastatin - Sucralfate MEDICAL HISTORY: As noted includes diabetes. She has a history of hypertension but denies any history of cardiac symptoms. She has hyperlipidemia. She reportedly has bipolar disorder and post-traumatic stress disorder. She reports a history of pancreatitis many years ago of unclear etiology. SURGICAL HISTORY: She has had two sections. She believes she did have an upper endoscopy five years or more ago, although she is really uncertain as to the timing. She does not have a definite history of peptic ulcer disease in the past. SOCIAL HISTORY: The patient denies any alcohol use. She is a long-term smoker, currently of 1.5 packs per day for about 40 years. FAMILY HISTORY: Really noncontributory. REVIEW OF SYSTEMS: Reveals no cardiac-type chest pain. She has no history of palpitations. There is no history of stroke or transient ischemic attack (TIA). She denies any history of seizures. She has no current dysuria or hematuria. She denies melena or hematochezia. She has had no emesis. She does think she has lost a little weight unintentionally. PHYSICAL EXAMINATION: The patient appears somewhat obese. She is alert and oriented. Sclerae are anicteric. Lungs are clear to auscultation bilaterally. The heart examination shows a regular rate and rhythm. Abdomen is mildly obese. She has bowel sounds present. The abdomen is soft and without significant tenderness to palpation or percussion. LABORATORY STUDIES: Today include a white count of 12, hemoglobin 12, hematocrit 39 and a platelet count of 316,000. On admission, on the , her white count was 17,000 with 74% neutrophils. She had a chemistry profile today that showed a sodium of 138, potassium of 3.7, chloride 108, CO2 of 21, BUN of 24, creatinine 1.76 and a glucose of 266. She had a hemoglobin A1c of 11.3 today giving an estimate mean plasma glucose of 278. Liver function tests today are normal. On admission yesterday, her glucose was 572 and she had a lactic acid of 3.3. Urinalysis yesterday showed turbid urine with 3+ glucose, 3+ blood, negative nitrite, 2+ leukocyte esterase, 39 white cells and 43 red cells per high-powered field with 2+ bacteria. She has a culture pending. She had troponin levels checked yesterday and early this morning that were normal. IMAGING DATA: She had a CT scan of the abdomen and pelvis at the time of admission which was read by the radiologist as showing an incompletely distended gallbladder without evidence of any obvious pathology. There was no evidence of free air and no obstruction. IMPRESSION: Epigastric abdominal pain of unclear etiology. Her labs show normal liver function tests. Her CT scan shows no evidence of gallbladder pathology and no sign of upper abdominal source for pain. It is certainly possible that she has gastritis or even peptic ulcer disease as the source for her discomfort. She has bene taking a non-steroidal anti-inflammatory medication recently. PLAN: I do think that an upper endoscopy would be reasonable. The patient recently relocated from [place] to [place] and has not yet connected with a local physician. I will try to add her onto the endoscopy schedule for Saturday, the 11 of May in honor of 's day so that we can get her endoscopy completed. CLAUDIA
[2020-05-11] MEDS ORDERED: DEXTROSE 50% 50 ML SYRINGE IV STA (12:24)
[2020-05-11] MEDS ORDERED: LIDOCAINE 2% 100MG/5ML SDV (FOR ANES.) As Ordered ONE (13:41)
[2020-05-11] MEDS ORDERED: fentaNYL 100 MCG/2 ML INJECTION (J3010) As Ordered ONE (13:41)
[2020-05-11] MEDS ORDERED: propofoL 200 MG/20 ML VIAL As Ordered ONE (13:42)
--- NOTE | 2020-05-11 14:18 | ROOR ---
Patient Name: Rosetta Huffman Procedure Date: 05/11/2020 1:46 PM Date of : 1960 Age: 59 Room: [facility] Gender: Female Note Status: Finalized Procedure: Upper GI endoscopy Indications: Epigastric abdominal pain Providers: Kingsley Davis MD Referring MD: 1. No Referring Physician 1. No Referring Physician, Admin. Requesting Provider: Medicines: Monitored Anesthesia Care Complications: No immediate complications. Procedure: Pre-Anesthesia Assessment: - Prior to the procedure, a History and Physical was performed, and patient medications and allergies were reviewed. The patient is competent. The risks and benefits of the procedure and the sedation options and risks were discussed with the patient. All questions were answered and informed consent was obtained. Patient identification and proposed procedure were verified by the physician, the nurse and the technical sales engineer in the procedure room. Mental Status Examination: alert and oriented. CV Examination: regular rate and rhythm. Prophylactic Antibiotics: The patient does not require prophylactic antibiotics. Prior Anticoagulants: The patient has taken no previous anticoagulant or antiplatelet agents. ASA Grade Assessment: III - A patient with severe systemic disease. After reviewing the risks and benefits, the patient was deemed in satisfactory condition to undergo the procedure. The anesthesia plan was to use monitored anesthesia care (MAC). Immediately prior to administration of medications, the patient was re-assessed for adequacy to receive sedatives. The heart rate, respiratory rate, oxygen saturations, blood pressure, adequacy of pulmonary ventilation, and response to care were monitored throughout the procedure. The physical status of the patient was re-assessed after the procedure. The Endoscope was introduced through the mouth, and advanced to the second part of duodenum. The upper GI endoscopy was accomplished without difficulty. The patient tolerated the procedure well. Findings: The examined esophagus was normal. A small area of mild inflammation c/w esophagitis with no bleeding was found at the GE junction. Localized minimal inflammation characterized by linear erosions was found in the prepyloric region of the stomach. Diffuse thick gastric folds were found in the entire examined stomach. The examined duodenum was normal. Impression: - Normal esophagus. - A small area of mild inflammation c/w esophagitis. - Gastritis. - Enlarged gastric folds. - Normal examined duodenum. - No specimens collected. Recommendation: - Return patient to [facility] for ongoing care. - Cnsistent carbohydrate diet today. - Continue present medications. Kingsley Davis MD Kingsley Davis MD 05/11/2020 2:17:48 PM Electronically signed by Kingsley Davis MD Number of Addenda: 0 Note Initiated On: 05/11/2020 1:46 PM Estimated Blood Loss: Estimated blood loss: none.
[2020-05-11 14:20] VITALS: BP 158/81
[2020-05-11] MEDS: SIMVASTATIN 40 MG TAB PO SCH (20:55)
[2020-05-11] MEDS: AMITRIPTYLINE 10 MG TAB PO SCH (20:55)
--- NOTE | 2020-05-11 21:36 | IPNPDOC ---
Date Seen The patient was seen on 05/11/20. Progress Note SUBJECTIVE: patient was seen and examined at bedside this morning. Planned for EGD today by Dr. Davis. Denies abdominal pain, chest pain, n/v/d, or s ubjective fevers/chills. VSS. OBJECTIVE PHYSICAL EXAMINATION: VITAL SIGNS: please see below General: NAD, comfortable HEENT: PERRLA, EOMI, sclerae clear Neck: supple, normal ROM, no JVD Respiratory: lungs CTAB, no wheeze, no rales, no crackles CVS: RRR, normal S1, S2, no murmurs Abdo: soft, no masses, no hepatosplenomegaly, BS+, non tender to palpation Extremities: no edema, pulses 2+ MSK: no joint deformities, normal ROM Neuro: no focal neuro deficits, moving all 4 extremities, CN2-12 intact. Strength 5/5 in all 4 extremities. No nystagmus. Psych: calm, cooperative, AAO x 3 LABORATORY DATA, IMAGING STUDIES, MICROBIOLOGY: Please see below. DVT prophylaxis ordered?: Yes, heparin ASSESSMENT AND PLAN: 59-year-old female with a history of type 2 diabetes, h ypertension, bipolar, PTSD, pancreatitis, and recent enterococcus UTI. Admitted to have peptic ulcer disease, possible gastritis. Patient admitted for management of uncontrolled hyperglycemia, ROBBIN as well as gastritis, likely requiring EGD this admission. PROBLEMS: # Epigastric abdominal pain: recurrent complaints. NSAID use vs peptic ulcer due to association with food. Protonix IV. H Pylori negative at last visit done by IgG Ab. Trop negative, trend. Lipase 167. CT abdomen/pelvis reviewed. EGD 05/11/20. # ROBBIN: Cr 2.18, improved to 1.76. Suspect prerenal dehydration from poor oral intake due to abdominal pain. FeNa pre-renal. IVFs. Avoid nephrotoxins. Trend BMP. # Elevated lactic acid: s/p IVF. Repeat 1.9. # IDDM: uncontrolled. A1c 11.3. Poor compliance. BG elevated. Increase levemir to 45 mg SC BID. ISS. Hypoglycemic precautions. Frequent Accu-Cheks. Close PCP f/u on DC. # UTI: leukocytosis 16.8 on admit. UA+. Recently dx enterococcus UTI, treated with levaquin, suspect poor compliance. Urine culture contaminated. Repeat UA. C/w ceftriaxone based on prior sensitivities. # Hyponatremia: 131 on admit. IVFs NS. Monitor. # HTN: BP 151/79. Resume amlodipine 10m coreg, 25 mg PO BID. Holding lisinopril due to ROBBIN. # Bipolar/PTSD: Continue psych meds. Fu psych OP. # Smoker: Doesn't want nicotine patch. Counseled to quit smoking. # Obesity: BMI 33. Complicates care. # DVT prophylaxis: heparin VS, I&O, 24H, Fishbone Vital Signs/I&O Vital Signs Date Time Temp Pulse Resp B/P (MAP) Pulse Ox O2 Delivery O2 Flow Rate FiO2 05/11/20 20:59 73 151/78 05/11/20 14:21 97.6 16 100 Room Air I&O- Last 24 Hours up to 6 AM 05/11/20 06:00 Intake Total 5440 ml Output Total 0 ml Balance 5440 ml Laboratory Data 24H LABS Laboratory Tests 2 05/11/20 06:04: Bedside Glucose (Misc Panel) 133H 05/11/20 08:35: Coronavirus (COVID-19)(PCR) NEGATIVE 05/11/20 09:47: Lab Scanned Report Miscellaneous Lab 05/11/20 11:45: Bedside Glucose (Misc Panel) 73L 05/11/20 13:03: Bedside Glucose (Misc Panel) 217H 05/11/20 15:40: Bedside Glucose (Misc Panel) 210H 05/11/20 16:46: Bedside Glucose (Misc Panel) 277H 05/11/20 20:42: Bedside Glucose (Misc Panel) 356H Microbiology Microbiology 05/09/20 Respiratory Virus Panel (PCR) ([facility]) - Final, Complete 05/09/20 Urine Culture - Final, Complete 05/09/20 Blood Culture - Preliminary, Resulted No Growth after 48 hours. All Specime... 05/09/20 Blood Culture - Preliminary, Resulted No Growth after 48 hours. All Specime... NEW MCLAUGHLIN MD May 11, 2020 21:36
[2020-05-11 22:00] VITALS: BP 150/80
[2020-05-11] MEDS: SODIUM CHLORIDE NASAL 0.65% SPRAY BTL (OCEAN) PRN (23:42)
[2020-05-12] MEDS: cefTRIAXone SOD 1 GM in D5W MINI-BAG PLUS 50 ML IV SCH (02:40)
[2020-05-12] MEDS: ACETAMINOPHEN TAB 650MG DOSE (2X325MG) PO PRN ×2 (03:57→09:01)
[2020-05-12] MEDS: NS 1,000 ML IV SCH (03:58)
[2020-05-12 06:00] VITALS: BP 142/62
[2020-05-12] MEDS: HumaLOG INSULIN (NovoLOG) PER UNIT SC SCH (07:30)
[2020-05-12 08:43] LABS: ALBUMIN 2.8 GM/DL (3.2-5.2); ALT/SGPT 9 U/L (12-78); BASO % 0.6 % (0.0-1.0); BILIRUBIN,TOTAL 0.2 MG/DL (0.2-1.0); BLOOD UREA NITROGEN 5 MG/DL (7-18); CALCIUM LEVEL 8.4 MG/DL (8.8-10.2); CARBON DIOXIDE LEVEL 24 MEQ/L (21-32); CHLORIDE LEVEL 113 MEQ/L (98-107); CREATININE FOR GFR 0.72 MG/DL (0.55-1.30); EOS # 0.1 10^3/uL (0.0-0.5); EOS % 1.5 % (0.0-3.0); GLOMERULAR FILTRATION RATE > 60.0 (>45); GLUCOSE, FASTING 172 MG/DL (70-100); HEMATOCRIT 35.5 % (36.0-47.0); HEMOGLOBIN 10.9 g/dl (12.0-15.5); LYMPH % 42.2 % (24.0-44.0); MAGNESIUM LEVEL 1.4 MG/DL (1.8-2.4); MEAN CORPUSCULAR HEMOGLOBIN 25.8 pg (27.0-33.0); MEAN CORPUSCULAR HGB CONC 30.7 g/dl (32.0-36.5); MEAN CORPUSCULAR VOLUME 84.1 fl (80.0-96.0); MONO # 0.6 10^3/uL (0.0-0.8); MONO % 8.2 % (0.0-5.0); NEUTROPHILS # 3.4 10^3/uL (1.5-8.5); NEUTROPHILS % 47.1 % (36.0-66.0); PLATELET COUNT, AUTOMATED 277 10^3/uL (150-450); POTASSIUM SERUM 3.7 MEQ/L (3.5-5.1); RED BLOOD COUNT 4.22 10^6/uL (4.00-5.40); SODIUM LEVEL 145 MEQ/L (136-145); TOTAL PROTEIN 6.1 GM/DL (6.4-8.2); WHITE BLOOD COUNT 7.2 10^3/uL (4.0-10.0)
[2020-05-12] MEDS ORDERED: amLODIPine 10 MG TAB PO SCH (09:00)
[2020-05-12] MEDS ORDERED: CARVedilol 12.5 MG TAB PO SCH (09:00)
[2020-05-12] MEDS ORDERED: LEVEMIR (INSULIN DETEMIR) 1 UNITS/0.01ML SC SCH ×2 (09:00)
[2020-05-12] MEDS: PANTOPRAZOLE 40MG VIAL (C9113 PER 1) IV SCH (09:01)
[2020-05-12 09:02] VITALS: BP 164/84
[2020-05-12] MEDS: SUCRALFATE SUSP 1GM/10ML UD PO SCH (09:02)
[2020-05-12] MEDS: CitaloPRAM (CeleXA) 20 MG TAB PO SCH (09:02)
[2020-05-12] MEDS: HEPARIN SOD (PORCINE) 5000UNITS/ML 1ML VIAL/SYRINGE SC SCH (09:02)
[2020-05-12] MEDS: OLANZapine 10 MG TAB PO SCH (09:02)
[2020-05-12] MEDS: SODIUM CHLORIDE NASAL 0.65% SPRAY BTL (OCEAN) PRN (09:03)
[2020-05-12] MEDS ORDERED: LANTINJ4 SC (09:41)
[2020-05-12] MEDS ORDERED: LEVO750T13 PO (09:41)
[2020-05-12] MEDS ORDERED: CARA1TAB6 PO (09:41)
[2020-05-12] MEDS ORDERED: ACET1TAB55 PO (09:41)
[2020-05-12] MEDS ORDERED: PANT40TA29 PO (09:41)
[2020-05-12] MEDS ORDERED: MAG-400T7 PO (09:43)
[2020-05-12] MEDS ORDERED: MAG SULF 1GM/100ML (MAG RUN) 1 GM in IV 1 EA IV ONE (09:45)
--- NOTE | 2020-05-12 09:52 | DS.PDOC ---
Discharge Summary General Date of Admission May 09, 2020 at 23:45 Date of Discharge 05/12/20 Attending Physician: NEW MCLAUGHLIN MD Discharge Summary PROCEDURES PERFORMED DURING STAY: EGD 05/11/20: The examined esophagus was normal. A small area of mild inflammation c/w esophagitis with no bleeding was found at the GE junction. Localized minimal inflammation characterized by linear erosions was found in the prepyloric region of the stomach. Diffuse thick gastric folds were found in the entire examined stomach. The examined duodenum was normal. Impression: - Normal esophagus. - A small area of mild inflammation c/w esophagitis. - Gastritis. - Enlarged gastric folds. - Normal examined duodenum. - No specimens collected. Recommendation: - [facility]. - Consistent carbohydrate diet today. - Continue present medications ADMITTING DIAGNOSES: esophagitis/gastritis BEN IDDM UTI Hyponatremia HTN Bipolar PTSD Smoker Obesity DISCHARGE DIAGNOSES: esophagitis/gastritis BEN IDDM UTI Hyponatremia HTN Bipolar PTSD Smoker Obesity COMPLICATIONS/CHIEF COMPLAINT: Ben, Dm2, Epigastric Abdominal Pain. HISTORY OF PRESENT ILLNESS: 59F PMhx IDDM, HTN, Bipolar, PTSD, pancreatitis here with epigastric abdominal pain. Patient was recently discharged with the same complaint and recommended to have an outpatient EGD for suspected gastritis versus peptic ulcer disease. Today patient tells me that since being discharged she does not feel any better her symptoms have persisted and she continues to have the same pain as before. Tells me she continues to take ibuprofen to attempt to alleviate her pain but it seems to make it worse she also says that pain is worse with food. Denies hematemesis. At the last visit patient was diagnosed with enterococcus UTI and treated with Levaquin with 2 more doses to be taken upon discharge. Patient seems confused and is unsure if she picked up her medications and took them. Denies dysuria at this time, no fever or chills and no flank pain. Regarding her diabetes patient tells me she's not very good at remembering to take her insulin but believes she took it regularly over the past 3 days except for this evening. She is unsure what type of insulin she takes but states she takes 34 units twice daily. In the ED patient was found to have a blood sugar 572 but not in DKA and was given 10 units of insulin. UA was collected and returned positive. CT abdomen/pelvis was completed. Chest x-ray was unrevealing. HOSPITAL COURSE: # Epigastric abdominal pain: recurrent complaints. NSAID use vs peptic ulcer due to association with food. Protonix IV. H Pylori negative at last visit done by IgG Ab. Trop negative, trend. Lipase 167. CT abdomen/pelvis reviewed. EGD showing mild esophagitis and gastritis. C/w protonix, carafate. Epigastric pain has resolved on discharge, patient tolerate PO diet. # BEN: Resolved with IVF. Cr 0.72 down from 2.18. Suspect prerenal dehydration from poor oral intake due to abdominal pain. FeNa pre-renal. Avoid nephrotoxins. DC NSAIDS. # Elevated lactic acid: s/p IVF. Repeat 1.9. # IDDM: uncontrolled. A1c 11.3. Poor compliance. BG elevated. Increase levemir to 40 mg SC BID pn DC. ISS. Hypoglycemic precautions. Frequent Accu-Cheks. Close PCP f/u on DC. # UTI: leukocytosis 16.8 on admit. UA+. Recently dx enterococcus UTI, treated with levaquin, suspect poor compliance. Urine culture contaminated. Repeat UA. Completed 3 days of IV ceftriaxone. Complete additiona 3 days of levaquin for a total of 6 days therapy. Leukocytosis resolved. No dysuria. # Hyponatremia: resolved with IV NS # HTN: BP 151/79. Resume amlodipine 10m coreg, 25 mg PO BID. Lisinopril resumed on DC as BEN resolved. # Bipolar/PTSD: Continue psych meds. Fu psych OP. # Smoker: Doesn't want nicotine patch. Counseled to quit smoking. # Obesity: BMI 33. Complicates care. # DVT prophylaxis: heparin DISCHARGE MEDICATIONS: Please see below. ALLERGIES: Please see below. PHYSICAL EXAMINATION ON DISCHARGE: VITAL SIGNS: please see below General: NAD, comfortable HEENT: PERRLA, EOMI, sclerae clear Neck: supple, normal ROM, no JVD Respiratory: lungs CTAB, no wheeze, no rales, no crackles CVS: RRR, normal S1, S2, no murmurs Abdo: soft, no masses, no hepatosplenomegaly, BS+, non tender to palpation Extremities: no edema, pulses 2+ MSK: no joint deformities, normal ROM Neuro: no focal neuro deficits, moving all 4 extremities, CN2-12 intact. Strength 5/5 in all 4 extremities. No nystagmus. Psych: calm, cooperative, AAO x 3 LABORATORY DATA: Please see below. IMAGING: CXR 05/09/20 - no acute findings CT abdo pelvis wo contrast (05/12/20) 1. The gallbladder is incompletely distended. This is most likely related to incomplete fasting. Clinical correlation to exclude gallbladder pathology suggested. 2. No perinephric stranding or mass demonstrated. If there is strong suspicion for pyelonephritis exists correlation with post-contrast imaging suggested. PROGNOSIS: Good ACTIVITY: [As tolerated]. DIET: GERD DISCHARGE PLAN: continue PPI PO BID until follow up with PCP. Continue carafate with meals. Complete 3 additional days of antibiotics - levofloxacin 750 mg by mouth daily (total of 6 days therapy, completed 3 days of IV ceftriaxone inpatient. Increased lantus to 40 units BID. DISPOSITION: home with PCP follow up. DISCHARGE INSTRUCTIONS: 1. Please follow-up with your primary care doctor within 3-5 days 2. Please follow-up with psychiatry within 1-2 weeks 3. Please taking medications as prescribed. 4. If he developed bleeding, chest pain, shortness of breath, seizures, nausea, fevers, or otherwise worsening of your symptoms, please call 911 or return to the nearest emergency room ITEMS TO FOLLOWUP ON ON OUTPATIENT: 1. Please repeat magnesium 2. please repeat BMP, check Cr. 3. GERD symptoms, patient on PPI BID, carafate. DISCHARGE CONDITION: [Stable]. TIME SPENT ON DISCHARGE: Greater than 30 minutes. Vital Signs/I&Os Vital Signs Date Time Temp Pulse Resp B/P (MAP) Pulse Ox O2 Delivery O2 Flow Rate FiO2 05/12/20 09:02 74 164/84 05/12/20 06:00 98.2 20 99 Room Air I&O- Last 24 Hours up to 6 AM 05/12/20 06:00 Intake Total 3440 ml Balance 3440 ml Laboratory Data Labs 24H Laboratory Tests 2 05/11/20 09:47: Lab Scanned Report Miscellaneous Lab 05/11/20 11:45: Bedside Glucose (Misc Panel) 73L 05/11/20 13:03: Bedside Glucose (Misc Panel) 217H 05/11/20 15:40: Bedside Glucose (Misc Panel) 210H 05/11/20 16:46: Bedside Glucose (Misc Panel) 277H 05/11/20 20:42: Bedside Glucose (Misc Panel) 356H 05/12/20 05:44: Bedside Glucose (Misc Panel) 114 05/12/20 07:55: Immature Granulocyte % (Auto) 0.4, Neutrophils (%) (Auto) 47.1, Lymphocytes (%) (Auto) 42.2, Monocytes (%) (Auto) 8.2H, Eosinophils (%) (Auto) 1.5, Basophils (%) (Auto) 0.6, Neutrophils # (Auto) 3.4, Lymphocytes # (Auto) 3.0, Monocytes # (Auto) 0.6, Eosinophils # (Auto) 0.1, Basophils # (Auto) 0.0, Nucleated Red Blood Cells % (auto) 0.0, Anion Gap 8, Glomerular Filtration Rate > 60.0, Calcium Level 8.4L, Magnesium Level 1.4L, Total Bilirubin 0.2, Aspartate Amino Transf (AST/SGOT) 11, Alanine Aminotransferase (ALT/SGPT) 9L, Alkaline Phosphatase 87, Total Protein 6.1L, Albumin 2.8L, Albumin/Globulin Ratio 0.8L 05/12/20 09:08: CBC/BMP Laboratory Tests 05/12/20 07:55 FSBS Laboratory Tests Test 05/11/20 11:45 05/11/20 13:03 05/11/20 15:40 05/11/20 16:46 Range/Units Bedside Glucose (Misc Panel) 73 217 210 277 80-115 MG/DL Test 05/11/20 20:42 05/12/20 05:44 Range/Units Bedside Glucose (Misc Panel) 356 114 80-115 MG/DL Microbiology Microbiology 05/09/20 Respiratory Virus Panel (PCR) ([facility]) - Final, Complete 05/09/20 Urine Culture - Final, Complete 05/09/20 Blood Culture - Preliminary, Resulted No Growth after 48 hours. All Specime... 05/09/20 Blood Culture - Preliminary, Resulted No Growth after 48 hours. All Specime... Discharge Medications Scheduled Alogliptin Benzoate (Alogliptin) 12.5 Mg Tablet, 12.5 MG PO DAILY, (Reported) Amitriptyline HCl (Amitriptyline HCl) 10 Mg Tablet, 20 MG PO QHS, (Reported) Amlodipine Besylate (Amlodipine Besylate) 10 Mg Tablet, 10 MG PO DAILY, (Reported) Aspirin (Aspirin EC) 81 Mg Tablet.dr, 162 MG PO DAILY, (Reported) Carvedilol (Carvedilol) 25 Mg Tablet, 25 MG PO BID, (Reported) Cholecalciferol (Vitamin D3) (Vitamin D3) 1,000 Unit Tablet, 2,000 UNITS PO DAILY, (Reported) Citalopram Hydrobromide (Citalopram HBr) 40 Mg Tablet, 20 MG PO DAILY, (Reported) Hydralazine HCl (Hydralazine HCl) 50 Mg Tablet, 50 MG PO BID, (Reported) Insulin Glargine,Hum.rec.anlog (Lantus Solostar) 100 Unit/1 Ml Insuln.pen, 40 UNITS SC BID Insulin Human Lispro (Novolog) 100 Unit/1 Ml Vial, 1 DOSE SC AC, (Reported) PER SLIDING SCALE Levofloxacin (Levofloxacin) 750 Mg Tablet, 750 MG PO DAILY Lisinopril (Lisinopril) 40 Mg Tablet, 40 MG PO DAILY, (Reported) Loratadine (Loratadine) 10 Mg Tablet, 10 MG PO DAILY, (Reported) Magnesium Oxide (Magnesium Oxide) 400 Mg Tablet, 400 MG PO BID for constipation Melatonin (Melatonin) 3 Mg Tablet, 3 MG PO QHS, (Reported) Metformin HCl (Metformin HCl) 850 Mg Tablet, 850 MG PO TID, (Reported) Olanzapine (Olanzapine) 20 Mg Tablet, 20 MG PO QHS, (Reported) Pantoprazole Sodium (Pantoprazole Sodium) 40 Mg Tablet.dr, 40 MG PO BID Pregabalin (Pregabalin) 300 Mg Capsule, 300 MG PO BID, (Reported) Simvastatin (Simvastatin) 40 Mg Tablet, 20 MG PO QHS, (Reported) Sucralfate (Carafate) 1 Gm Tablet, 1 GM PO ACHS Scheduled PRN Acetaminophen (Acetaminophen) 325 Mg Tablet, 650 MG PO Q6HP PRN for PAIN OR FEVER Capsaicin (Capsaicin) 42.5 Gm Cream..g., 1 DOSE EXT BID PRN for PAIN, (Reported) Clobetasol Propionate (Temovate) 15 Gm Oint...g., 1 DOSE TOP BID PRN for ITCH/RASH, (Reported) Docusate Sodium (Docusate Sodium) 100 Mg Capsule, 100 MG PO BID PRN for CONSTIPATION, (Reported) Fluticasone Propionate (Fluticasone Propionate) 16 Gm [place].susp, 1 SPRAY NA DAILY PRN for CONGESTION, (Reported) Guaifenesin (Guaifenesin) 100 Mg/5 Ml Liquid, 10 ML PO Q4H PRN for CONGESTION, (Reported) Lorazepam (Ativan) 0.5 Mg Tablet, 0.5 MG PO BID PRN for ANXIETY, (Reported) Miscellaneous Medications [Patient Comment] , (Reported) PATIENT UNAVAILABLE. COMPLETED VIA EXTERNAL MED HISTORY, DISCHARGE PAPERWORK 04/27/2020 AND CALL TO PHARMACY [facility] [place] Allergies Coded Allergies: sulfamethoxazole (Verified Allergy, Mild, rash, 05/09/20) trimethoprim (Verified Allergy, Mild, rash, 05/09/20) diazepam (Verified Adverse Reaction, Mild, hyperactivity, 05/09/20) codeine (Unverified Adverse Reaction, Unknown, 05/09/20) "reversed reaction." NEW MCLAUGHLIN MD May 12, 2020 09:52
== END 2020-05-12 12:20 | disposition home or self-care (01) | DRG 683 ==
LOC: M ED 19:08 → M ED INP 23:45 → ENRESERV 05-10 14:40 → M MSPAV 05-10 14:45
PROVIDERS: ADMIT Family Medicine; ATTEND Family Medicine
PROC: 0DJ08ZZ Inspection of Upper Intestinal Tract, Via Natural or Artificial Opening Endoscopic (ICD-10-PCS; principal; 2020-05-11 15:00)
DX: N17.9 Acute kidney failure, unspecified (principal); E87.2 Acidosis; E87.1 Hypo-osmolality and hyponatremia; N39.0 Urinary tract infection, site not specified; K29.70 Gastritis, unspecified, without bleeding; E11.65 Type 2 diabetes mellitus with hyperglycemia; I10 Essential (primary) hypertension; F31.9 Bipolar disorder, unspecified; F43.10 Post-traumatic stress disorder, unspecified; F17.200 Nicotine dependence, unspecified, uncomplicated; E66.9 Obesity, unspecified; Z68.33 Body mass index [BMI] 33.0-33.9, adult; Z20.828 Contact with and (suspected) exposure to other viral communicable diseases; Z79.82 Long term (current) use of aspirin; Z79.4 Long term (current) use of insulin; Z79.899 Other long term (current) drug therapy; Z88.2 Allergy status to sulfonamides; Z88.5 Allergy status to narcotic agent; Z88.8 Allergy status to other drugs, medicaments and biological substances

== ENCOUNTER 2020-06-08 14:16 | Emergency (ER) | payer OTHER ==
[~2020-06-08] VITALS: Ht 175.3 cm; Wt 101.8 kg
[~2020-06-08 14:16] MED LIST changes: +ACET1TAB55 PO; +CAPS42.54 EXT; +CARA1TAB6 PO; +GUAI5EL PO; +HYDR-3911 PO; +IBUP1TAB6 PO; +INSUH10VL SC; +LANTINJ4 SC; +LEVO750T13 PO; +LORA-436 PO; +MAG-400T7 PO; +MELA3TAB7 PO; +PATIENT COMMENT; +TEMO0.0517 TOP
[2020-06-08] MEDS ORDERED: MORPHINE 10 MG/ML 1ML VIAL (J2270) IM ONE (14:30)
--- NOTE | 2020-06-08 15:18 | REP ---
INDICATION: left UE pain s/p fall COMPARISON: None. TECHNIQUE: Two views left humerus obtained. FINDINGS: Somewhat comminuted fracture is visualized of the distal humeral shaft with mild displacement and angulation. There are mild degenerative changes at the glenohumeral joint with no dislocation at the joint. IMPRESSION: Mildly comminuted fracture distal humeral shaft with mild displacement and angulation. <Electronically signed by Antony Thomas > 06/08/20 1029
--- NOTE | 2020-06-08 15:20 | REP ---
INDICATION: left UE pain s/p fall COMPARISON: None. TECHNIQUE: Three views left elbow performed. FINDINGS: There is a mildly comminuted fracture of the distal shaft of the humerus with mild displacement and angulation. No fracture or dislocation is visualized at the elbow. IMPRESSION: Mildly comminuted fracture distal shaft of the humerus with mild displacement and angulation. <Electronically signed by Antony Thomas > 06/08/20 1678
[2020-06-08] MEDS ORDERED: NAPR-837 PO (15:40)
[2020-06-08] MEDS ORDERED: ROBA750T4 PO (15:40)
[2020-06-08] MEDS ORDERED: NORC1TAB7 PO (16:33)
[2020-06-08 17:05] VITALS: BP 138/74
== END 2020-06-08 17:07 | disposition home or self-care (01) ==
LOC: EDBD 14:16 → M ED 14:16
DX: S42.352A Displaced comminuted fracture of shaft of humerus, left arm, initial encounter for closed fracture (principal); W06.XXXA Fall from bed, initial encounter; Y92.013 Bedroom of single-family (private) house as the place of occurrence of the external cause; I11.0 Hypertensive heart disease with heart failure; I50.9 Heart failure, unspecified; F33.9 Major depressive disorder, recurrent, unspecified; F41.9 Anxiety disorder, unspecified; F43.10 Post-traumatic stress disorder, unspecified; K21.9 Gastro-esophageal reflux disease without esophagitis; Z79.899 Other long term (current) drug therapy; Z79.4 Long term (current) use of insulin; Z79.82 Long term (current) use of aspirin; Z88.2 Allergy status to sulfonamides; Z88.5 Allergy status to narcotic agent; Z88.8 Allergy status to other drugs, medicaments and biological substances; F17.210 Nicotine dependence, cigarettes, uncomplicated
CPT/HCPCS: 73060; 73080; 99284; J2270

== ENCOUNTER 2020-06-30 15:53 | Inpatient (IN) | payer OTHER ==
[~2020-06-30] VITALS: Ht 175.3 cm; Wt 99.3 kg
[~2020-06-30 15:53] MED LIST changes: -FLUTISP; +FLUTISP NARES; -LORA-436 PO; +LORA-930 PO; +NAPR-837 PO; +NORC1TAB7 PO; +ROBA750T4 PO
[2020-06-30 17:11] LABS: HEMATOCRIT 33.7 % (36.0-47.0); HEMOGLOBIN 9.9 g/dl (12.0-15.5); MEAN CORPUSCULAR HEMOGLOBIN 25.4 pg (27.0-33.0); MEAN CORPUSCULAR HGB CONC 29.4 g/dl (32.0-36.5); MEAN CORPUSCULAR VOLUME 86.4 fl (80.0-96.0); PLATELET COUNT, AUTOMATED 435 10^3/uL (150-450); WHITE BLOOD COUNT 11.7 10^3/uL (4.0-10.0)
[2020-06-30 17:42] LABS: ALBUMIN 2.7 GM/DL (3.2-5.2); ALT/SGPT 18 U/L (12-78); BILIRUBIN,TOTAL 0.1 MG/DL (0.2-1.0); BLOOD UREA NITROGEN 9 MG/DL (7-18); CALCIUM LEVEL 8.8 MG/DL (8.8-10.2); CARBON DIOXIDE LEVEL 26 MEQ/L (21-32); CHLORIDE LEVEL 109 MEQ/L (98-107); CREATININE FOR GFR 0.79 MG/DL (0.55-1.30); GLOMERULAR FILTRATION RATE > 60.0 (>45); GLUCOSE, FASTING 169 MG/DL (70-100); POTASSIUM SERUM 3.7 MEQ/L (3.5-5.1); SODIUM LEVEL 141 MEQ/L (136-145); TOTAL PROTEIN 6.5 GM/DL (6.4-8.2)
[2020-06-30] MEDS ORDERED: IBUPROFEN 400 MG TAB PO ONE (17:45)
[2020-06-30 17:50] LABS: MONOCYTES 4 % (0-5); NEUTROPHILS 58 % (28-66)
[2020-06-30 17:51] LABS: ATYPICAL LYMPH 1 % (0-5); HYPOCHROMASIA 2+; LYMPHOCYTES 36 % (16-44)
[2020-06-30 17:52] LABS: ANISOCYTOSIS 1+; PLATELET ESTIMATE INCREASED (NORMAL)
[2020-06-30 17:54] LABS: POLYCHROMASIA 1+
[2020-06-30] MEDS ORDERED: PANT40TA29 PO (18:06)
[2020-06-30] MEDS ORDERED: ASCO500T PO (18:06)
[2020-06-30] MEDS ORDERED: MIRA3350 PO (18:06)
[2020-06-30] MEDS ORDERED: IBUP1TAB6 PO (18:06)
[2020-06-30] MEDS ORDERED: LANTINJ4 SC (18:06)
[2020-06-30] MEDS ORDERED: CALC500T44 PO (18:06)
[2020-06-30] MEDS ORDERED: OXYC-517 PO (18:06)
[2020-06-30] MEDS ORDERED: VITA50005 PO (18:06)
[2020-06-30] MEDS ORDERED: GLUCOSE 4GM CHEW TABLET PO PRN (18:15)
[2020-06-30] MEDS ORDERED: DEXTROSE 50% 50 ML SYRINGE IV PRN (18:15)
[2020-06-30] MEDS ORDERED: MIRALAX *UNIT DOSE* 17GM PACKET PO PRN (18:15)
[2020-06-30] MEDS ORDERED: GLUCAGON INJ 1MG VIAL SC PRN (18:15)
[2020-06-30 19:01] LABS: RSV AMPLIFICATION NEGATIVE (NEGATIVE)
--- NOTE | 2020-06-30 19:09 | HPE ---
HISTORY AND PHYSICAL DATE OF ADMISSION: 06/30/2020 ADMITTING DIAGNOSIS: Social admission. HISTORY OF PRESENT ILLNESS: The patient is being admitted as a social admission. Her physician called me that the patient's living conditions were not safe or hygienic. There are no acute medical problems requiring hospitalization. She is a poorly-controlled type-2 diabetic. Last hemoglobin A1c was 11.3%. Type-2 diabetic now requiring insulin. She was hospitalized in May for acute kidney injury which resolved. She has some mild chronic anemia. In May she had an upper endoscopy done for epigastric pain and some mild gastritis was found. I do not think it was even biopsied. This will be her third hospitalization in three months. PAST MEDICAL HISTORY: Other past history shows: 1. Hypertension. 2. Bipolar disorder. 3. History of PTSD. 4. History of pancreatitis. 5. History of noncompliance. 6. Poorly controlled diabetes, hemoglobin A1c in May over 11%. 7. History of enterococcal UTI. 8. She had a recent left humeral fracture for which she apparently underwent surgical repair ten days ago. That was not done at this facility. SOCIAL HISTORY: Denies alcohol use. Pack and a half per day smoker for 40 years. Denies illicit drug use. FAMILY HISTORY: Noncontributory. ALLERGIES: CODEINE, VALIUM, SULFA and TRIMETHOPRIM. REVIEW OF SYSTEMS: Denies polyuria, polydipsia, chest pain, shortness of breath, syncope, rectal bleeding, urinary bleeding, epistaxis. MEDICATIONS: I am not sure which of the medicines she is actually taking. She is prescribed: - Alogliptin 12.5 mg daily - Amitriptyline 20 mg once daily at bedtime - Amlodipine 10 mg daily - Vitamin C - Aspirin 81 mg daily - Calcium with vitamin D - Carvedilol 25 mg twice a day - Celexa 20 mg daily - Colace as needed - Vitamin D 15,000 units weekly - Flonase nasal spray - Ibuprofen 600 mg twice a day as needed - Lantus 40 units twice a day - NovoLog Insulin sliding scale - Lisinopril 40 mg daily - Claritin 10 mg daily - Ativan 0.5 mg twice a day as needed - Melatonin 3 mg once daily at bedtime - Metformin 850 mg three times a day - Olanzapine 20 mg once daily at bedtime - Oxycodone 5 mg twice a day as needed - Protonix 40 mg twice a day - MiraLax capful daily - Lyrica 300 mg twice a day - Simvastatin 40 mg once daily at bedtime PHYSICAL EXAMINATION: VITAL SIGNS: Per ER flow sheet. Blood pressure 129/66, afebrile. GENERAL APPEARANCE: Alert, conversant, no distress. HEENT: Pupils equal, round and reactive to light. Tympanic membranes (TMs) and oropharynx benign. Poor dentition. NECK: No masses. LUNGS: Decreased breath sounds but clear. HEART: Regular rate and rhythm. No murmur. ABDOMEN: Soft, nontender. No masses. EXTREMITIES: No clubbing, cyanosis, or edema. She has a surgical dressing over her left humerus. LABS: White blood cell count 12.7, hemoglobin 9.9, platelets 435. Sodium 141, potassium 3.7, BUN 9, creatinine 0.7, glucose 169. IMPRESSION: Per sign-out from the Emergency Room provider, the patient's social situation is unsafe and she does not have running water or a functioning bathroom. Ericka Vaughan from [facility] is involved as well. Spoke with the patient's career information specialist who I think saw the patient in the Emergency Room. They are trying to make plans for her to go to subacute rehab. Tomorrow is New Year's Day and then it is the weekend so I am sure nothing much is going to happen that way until July 04. I will get a hemoglobin A1c to see how her blood sugar has been over the last six weeks since the last time we did one here. Work up her anemia with iron studies, B12 and folate and continue her usual medications.
[2020-06-30 19:35] LABS: FERRITIN 29 NG/ML (8-252); FREE T4 1.15 NG/DL (0.76-1.46); IRON (FE) 23 UG/DL (50-170); TOTAL IRON BINDING CAPACITY 255 UG/DL (250-450); VITAMIN B12 LEVEL 271 PG/ML
[2020-06-30 19:36] LABS: FOLATE 7.9 NG/ML
[2020-06-30 19:39] LABS: HEMOGLOBIN A1c 10.9 %
[2020-06-30] MEDS: PANTOPRAZOLE 40MG TAB (PROTONIX) PO SCH (21:07)
[2020-06-30] MEDS: DOCUSATE SODIUM 100MG CAPSULE PO SCH (21:07)
[2020-06-30] MEDS: OLANZapine 10 MG TAB PO SCH (21:07)
[2020-06-30] MEDS: SIMVASTATIN 20 MG TAB PO SCH (21:07)
[2020-06-30] MEDS: PREGABALIN 100 MG CAP (LYRICA) PO SCH (21:07)
[2020-06-30] MEDS: CARVedilol 12.5 MG TAB PO SCH (21:08)
[2020-06-30] MEDS: LEVEMIR (INSULIN DETEMIR) 1 UNITS/0.01ML SC SCH (23:23)
[2020-07-01 00:20] VITALS: BP 148/77
[2020-07-01] MEDS: AMITRIPTYLINE 10 MG TAB PO SCH ×2 (01:45→21:20)
[2020-07-01] MEDS: HumaLOG INSULIN (NovoLOG) PER UNIT SC SCH ×5 (01:45→21:21)
[2020-07-01 06:22] VITALS: BP 147/75
[2020-07-01 06:56] LABS: HEMATOCRIT 34.5 % (36.0-47.0); HEMOGLOBIN 10.1 g/dl (12.0-15.5); MEAN CORPUSCULAR HEMOGLOBIN 25.4 pg (27.0-33.0); MEAN CORPUSCULAR HGB CONC 29.3 g/dl (32.0-36.5); MEAN CORPUSCULAR VOLUME 86.7 fl (80.0-96.0); PLATELET COUNT, AUTOMATED 463 10^3/uL (150-450); RED BLOOD COUNT 3.98 10^6/uL (4.00-5.40); WHITE BLOOD COUNT 8.7 10^3/uL (4.0-10.0)
[2020-07-01 07:16] LABS: BLOOD UREA NITROGEN 10 MG/DL (7-18); CALCIUM LEVEL 9.1 MG/DL (8.8-10.2); CARBON DIOXIDE LEVEL 26 MEQ/L (21-32); CHLORIDE LEVEL 109 MEQ/L (98-107); CREATININE FOR GFR 0.76 MG/DL (0.55-1.30); GLOMERULAR FILTRATION RATE > 60.0 (>45); GLUCOSE, FASTING 193 MG/DL (70-100); POTASSIUM SERUM 3.8 MEQ/L (3.5-5.1); SODIUM LEVEL 140 MEQ/L (136-145)
--- NOTE | 2020-07-01 07:36 | IPN ---
PROGRESS NOTE DATE: 07/01/2020 SUBJECTIVE: Rosetta is seen on [address] [facility], she was admitted for social reasons, unsafe home, social situation. Following up on some lab work from yesterday, hemoglobin A1c was 10.9%, her hemoglobin is stable at 10.1. Blood sugars have been in the 200-300 range. I reduced the dose of her basal insulin as I was concerned about inducing hypoglycemia on an enforced diabetic regimen. She has a borderline low B12 level and it is probably from her Metformin therapy. I am going to start some oral B12, 1000 mcg daily to supplement this. [facility] is unavailable due to the holiday, will not be available over the weekend, so it will be Saturday before we get any movement on finding a disposition for her.
[2020-07-01] MEDS: metFORMIN (GLUCOPHAGE) 500 MG TAB PO SCH ×2 (08:32→17:11)
[2020-07-01] MEDS: LORATADINE 10 MG TAB PO SCH (08:32)
[2020-07-01] MEDS: PREGABALIN 100 MG CAP (LYRICA) PO SCH ×2 (08:32→21:19)
[2020-07-01] MEDS: ASPIRIN 81 MG ENTERIC TAB PO SCH (08:32)
[2020-07-01] MEDS: DOCUSATE SODIUM 100MG CAPSULE PO SCH ×2 (08:32→21:19)
[2020-07-01] MEDS: LEVEMIR (INSULIN DETEMIR) 1 UNITS/0.01ML SC SCH ×2 (08:32→21:20)
[2020-07-01] MEDS: CYANOCOBALAMIN 500 MCG TAB PO SCH (08:33)
[2020-07-01] MEDS: amLODIPine 10 MG TAB PO SCH (08:33)
[2020-07-01] MEDS: CARVedilol 12.5 MG TAB PO SCH ×2 (08:33→21:20)
[2020-07-01] MEDS: CitaloPRAM (CeleXA) 20 MG TAB PO SCH (08:33)
[2020-07-01] MEDS: ASCORBIC ACID 500 MG TAB PO SCH (08:34)
[2020-07-01] MEDS: lisinopriL 40 MG TAB PO SCH (08:34)
[2020-07-01] MEDS: PANTOPRAZOLE 40MG TAB (PROTONIX) PO SCH ×2 (08:34→21:19)
[2020-07-01 15:00] VITALS: BP 117/53
[2020-07-01] MEDS: IBUPROFEN 600MG TAB PO PRN (15:21)
[2020-07-01 20:00] VITALS: BP 130/63
[2020-07-01] MEDS: SIMVASTATIN 20 MG TAB PO SCH (21:19)
[2020-07-01] MEDS: OLANZapine 10 MG TAB PO SCH (21:19)
[2020-07-02 05:52] VITALS: BP 133/74
[2020-07-02] MEDS: LEVEMIR (INSULIN DETEMIR) 1 UNITS/0.01ML SC SCH ×2 (08:12→21:36)
[2020-07-02] MEDS: HumaLOG INSULIN (NovoLOG) PER UNIT SC SCH ×4 (08:12→21:00)
[2020-07-02] MEDS: CARVedilol 12.5 MG TAB PO SCH ×2 (08:13→21:37)
[2020-07-02] MEDS: PANTOPRAZOLE 40MG TAB (PROTONIX) PO SCH ×2 (08:13→21:36)
[2020-07-02] MEDS: DOCUSATE SODIUM 100MG CAPSULE PO SCH ×2 (08:13→21:37)
[2020-07-02] MEDS: amLODIPine 10 MG TAB PO SCH (08:13)
[2020-07-02] MEDS: CitaloPRAM (CeleXA) 20 MG TAB PO SCH (08:13)
[2020-07-02] MEDS: lisinopriL 40 MG TAB PO SCH (08:13)
[2020-07-02] MEDS: ASCORBIC ACID 500 MG TAB PO SCH (08:14)
[2020-07-02] MEDS: metFORMIN (GLUCOPHAGE) 500 MG TAB PO SCH ×2 (08:14→17:21)
[2020-07-02] MEDS: LORATADINE 10 MG TAB PO SCH (08:14)
[2020-07-02] MEDS: PREGABALIN 100 MG CAP (LYRICA) PO SCH ×2 (08:14→21:36)
[2020-07-02] MEDS: ASPIRIN 81 MG ENTERIC TAB PO SCH (08:14)
[2020-07-02] MEDS: CYANOCOBALAMIN 500 MCG TAB PO SCH (08:14)
--- NOTE | 2020-07-02 10:11 | IPN ---
PROGRESS NOTE DATE: 07/02/2020 SUBJECTIVE: Sana was admitted for social issues, awaiting for Saturday for [facility] to get back. Today it was noted that her blood sugar was sufficient that we could increase the dose of her Detemir insulin, so it went from 20 units to 30 units twice daily. Otherwise, no change in her treatment at this time.
[2020-07-02 14:00] VITALS: BP 138/68
[2020-07-02 19:59] VITALS: BP 146/71
[2020-07-02] MEDS: SIMVASTATIN 20 MG TAB PO SCH (21:36)
[2020-07-02] MEDS: OLANZapine 10 MG TAB PO SCH (21:37)
[2020-07-02] MEDS: AMITRIPTYLINE 10 MG TAB PO SCH (21:37)
[2020-07-03 05:59] VITALS: BP 147/72
[2020-07-03] MEDS: ASPIRIN 81 MG ENTERIC TAB PO SCH (08:03)
[2020-07-03] MEDS: CYANOCOBALAMIN 500 MCG TAB PO SCH (08:03)
[2020-07-03] MEDS: HumaLOG INSULIN (NovoLOG) PER UNIT SC SCH ×4 (08:03→21:58)
[2020-07-03] MEDS: metFORMIN (GLUCOPHAGE) 500 MG TAB PO SCH ×2 (08:03→17:52)
[2020-07-03] MEDS: PANTOPRAZOLE 40MG TAB (PROTONIX) PO SCH ×2 (08:04→21:56)
[2020-07-03] MEDS: PREGABALIN 100 MG CAP (LYRICA) PO SCH ×2 (08:04→21:57)
[2020-07-03] MEDS: DOCUSATE SODIUM 100MG CAPSULE PO SCH ×2 (08:04→21:56)
[2020-07-03] MEDS: LORATADINE 10 MG TAB PO SCH (08:04)
[2020-07-03] MEDS: ASCORBIC ACID 500 MG TAB PO SCH (08:05)
[2020-07-03] MEDS: CitaloPRAM (CeleXA) 20 MG TAB PO SCH (08:05)
[2020-07-03] MEDS: LEVEMIR (INSULIN DETEMIR) 1 UNITS/0.01ML SC SCH ×2 (08:05→21:58)
[2020-07-03] MEDS: amLODIPine 10 MG TAB PO SCH (08:06)
[2020-07-03] MEDS: lisinopriL 40 MG TAB PO SCH (08:06)
[2020-07-03] MEDS: CARVedilol 12.5 MG TAB PO SCH ×2 (08:06→21:57)
--- NOTE | 2020-07-03 12:48 | IPN ---
PROGRESS NOTE DATE: 07/03/2020 SUBJECTIVE: Rosetta's blood sugar seems to be a little better today. We adjusted her insulin doses yesterday. She is a social admission. We are waiting for [facility] to get back. Her vital signs are stable. Her exam is unremarkable, unchanged. Her blood sugars seem to be slowly improving. PLAN: Plan is for [facility] involvement for placement tomorrow.
[2020-07-03 14:00] VITALS: BP 135/59
[2020-07-03] MEDS: OLANZapine 10 MG TAB PO SCH (21:56)
[2020-07-03] MEDS: AMITRIPTYLINE 10 MG TAB PO SCH (21:56)
[2020-07-03] MEDS: SIMVASTATIN 20 MG TAB PO SCH (21:56)
[2020-07-03 22:00] VITALS: BP 132/59
[2020-07-04 06:00] VITALS: BP 140/65
[2020-07-04] MEDS: LEVEMIR (INSULIN DETEMIR) 1 UNITS/0.01ML SC SCH ×2 (08:50→22:29)
[2020-07-04] MEDS: LORazepam 0.5 MG TAB PO PRN (08:51)
[2020-07-04] MEDS: PREGABALIN 100 MG CAP (LYRICA) PO SCH ×2 (08:51→22:27)
[2020-07-04] MEDS: HumaLOG INSULIN (NovoLOG) PER UNIT SC SCH ×4 (08:51→21:00)
[2020-07-04] MEDS: ASPIRIN 81 MG ENTERIC TAB PO SCH (08:51)
[2020-07-04] MEDS: CARVedilol 12.5 MG TAB PO SCH ×2 (08:52→22:28)
[2020-07-04] MEDS: DOCUSATE SODIUM 100MG CAPSULE PO SCH ×2 (08:52→22:28)
[2020-07-04] MEDS: lisinopriL 40 MG TAB PO SCH (08:53)
[2020-07-04] MEDS: PANTOPRAZOLE 40MG TAB (PROTONIX) PO SCH ×2 (08:53→22:29)
[2020-07-04] MEDS: LORATADINE 10 MG TAB PO SCH (08:53)
[2020-07-04] MEDS: metFORMIN (GLUCOPHAGE) 500 MG TAB PO SCH ×2 (08:53→18:53)
[2020-07-04] MEDS: CitaloPRAM (CeleXA) 20 MG TAB PO SCH (08:53)
[2020-07-04] MEDS: ASCORBIC ACID 500 MG TAB PO SCH (08:54)
[2020-07-04] MEDS: CYANOCOBALAMIN 500 MCG TAB PO SCH (08:54)
[2020-07-04] MEDS: amLODIPine 10 MG TAB PO SCH (08:54)
[2020-07-04] MEDS: IBUPROFEN 600MG TAB PO PRN ×2 (08:54→22:35)
[2020-07-04 14:00] VITALS: BP 157/79
[2020-07-04 22:00] VITALS: BP 157/77
[2020-07-04] MEDS: SIMVASTATIN 20 MG TAB PO SCH (22:27)
[2020-07-04] MEDS: AMITRIPTYLINE 10 MG TAB PO SCH (22:28)
[2020-07-04] MEDS: OLANZapine 10 MG TAB PO SCH (22:29)
[2020-07-05 06:00] VITALS: BP 159/84
[2020-07-05] MEDS: CARVedilol 12.5 MG TAB PO SCH ×2 (07:24→20:03)
[2020-07-05] MEDS: CitaloPRAM (CeleXA) 20 MG TAB PO SCH (07:24)
[2020-07-05] MEDS: ASPIRIN 81 MG ENTERIC TAB PO SCH (07:24)
[2020-07-05] MEDS: metFORMIN (GLUCOPHAGE) 500 MG TAB PO SCH ×2 (07:25→17:46)
[2020-07-05] MEDS: lisinopriL 40 MG TAB PO SCH (07:25)
[2020-07-05] MEDS: amLODIPine 10 MG TAB PO SCH (07:25)
[2020-07-05] MEDS: PREGABALIN 100 MG CAP (LYRICA) PO SCH ×2 (07:25→20:02)
[2020-07-05] MEDS: DOCUSATE SODIUM 100MG CAPSULE PO SCH ×2 (07:26→20:02)
[2020-07-05] MEDS: IBUPROFEN 600MG TAB PO PRN ×2 (07:26→20:05)
[2020-07-05] MEDS: CYANOCOBALAMIN 500 MCG TAB PO SCH (07:26)
[2020-07-05] MEDS: ASCORBIC ACID 500 MG TAB PO SCH (07:26)
[2020-07-05] MEDS: PANTOPRAZOLE 40MG TAB (PROTONIX) PO SCH ×2 (07:27→20:02)
[2020-07-05] MEDS: LORATADINE 10 MG TAB PO SCH (07:27)
[2020-07-05] MEDS: LEVEMIR (INSULIN DETEMIR) 1 UNITS/0.01ML SC SCH ×2 (07:28→20:04)
[2020-07-05] MEDS: HumaLOG INSULIN (NovoLOG) PER UNIT SC SCH ×4 (07:28→20:04)
--- NOTE | 2020-07-05 09:49 | IPN ---
PROGRESS NOTE DATE: 07/05/2020 SUBJECTIVE: Rosetta is seen on [address] [facility]. Apparently they are looking at rehab options now. We have been adjusting her medications. Her diabetes is coming under better control. Blood pressure is well-controlled with enforced compliance of her medications. She is resting comfortably and looks quite well. OBJECTIVE: VITAL SIGNS: Afebrile. Vital signs stable. LUNGS: Clear. HEART: Rhythm regular. ABDOMEN: Abdomen soft and nontender. EXTREMITIES: No peripheral edema. IMPRESSION: 1. Diabetes under improving control. Will increase her detemir insulin dose and continue sliding scale insulin with coverage. 2. Hypertension. Blood pressure is mildly elevated. Will start some chlorthalidone to augment her amlodipine and lisinopril. I have ordered some lab work for tomorrow.
[2020-07-05] MEDS: CHLORTHALIDONE 12.5MG PER 1/2 TABLET PO SCH (10:52)
[2020-07-05] MEDS: AMITRIPTYLINE 10 MG TAB PO SCH (20:02)
[2020-07-05] MEDS: SIMVASTATIN 20 MG TAB PO SCH (20:02)
[2020-07-05] MEDS: OLANZapine 10 MG TAB PO SCH (20:03)
[2020-07-05 22:00] VITALS: BP 140/75
[2020-07-06 06:00] VITALS: BP 134/85
[2020-07-06 07:18] LABS: HEMATOCRIT 33.7 % (36.0-47.0); HEMOGLOBIN 9.9 g/dl (12.0-15.5); MEAN CORPUSCULAR HEMOGLOBIN 24.9 pg (27.0-33.0); MEAN CORPUSCULAR HGB CONC 29.4 g/dl (32.0-36.5); MEAN CORPUSCULAR VOLUME 84.9 fl (80.0-96.0); PLATELET COUNT, AUTOMATED 457 10^3/uL (150-450); RED BLOOD COUNT 3.97 10^6/uL (4.00-5.40); WHITE BLOOD COUNT 9.4 10^3/uL (4.0-10.0)
[2020-07-06 07:43] LABS: BLOOD UREA NITROGEN 10 MG/DL (7-18); CALCIUM LEVEL 8.8 MG/DL (8.8-10.2); CARBON DIOXIDE LEVEL 28 MEQ/L (21-32); CHLORIDE LEVEL 110 MEQ/L (98-107); CREATININE FOR GFR 0.71 MG/DL (0.55-1.30); GLOMERULAR FILTRATION RATE > 60.0 (>45); GLUCOSE, FASTING 161 MG/DL (70-100); SODIUM LEVEL 142 MEQ/L (136-145)
[2020-07-06] MEDS: HumaLOG INSULIN (NovoLOG) PER UNIT SC SCH ×4 (07:58→20:02)
[2020-07-06] MEDS: DOCUSATE SODIUM 100MG CAPSULE PO SCH ×2 (07:59→20:00)
[2020-07-06] MEDS: ASCORBIC ACID 500 MG TAB PO SCH (07:59)
[2020-07-06] MEDS: metFORMIN (GLUCOPHAGE) 500 MG TAB PO SCH ×2 (07:59→17:38)
[2020-07-06] MEDS: ASPIRIN 81 MG ENTERIC TAB PO SCH (08:00)
[2020-07-06] MEDS: CYANOCOBALAMIN 500 MCG TAB PO SCH (08:00)
[2020-07-06] MEDS: CitaloPRAM (CeleXA) 20 MG TAB PO SCH (08:00)
[2020-07-06] MEDS: CARVedilol 12.5 MG TAB PO SCH ×2 (08:00→20:01)
[2020-07-06] MEDS: CHLORTHALIDONE 12.5MG PER 1/2 TABLET PO SCH (08:00)
[2020-07-06] MEDS: PREGABALIN 100 MG CAP (LYRICA) PO SCH ×2 (08:01→20:00)
[2020-07-06] MEDS: lisinopriL 40 MG TAB PO SCH (08:01)
[2020-07-06] MEDS: amLODIPine 10 MG TAB PO SCH (08:01)
[2020-07-06] MEDS: LORATADINE 10 MG TAB PO SCH (08:01)
[2020-07-06] MEDS: PANTOPRAZOLE 40MG TAB (PROTONIX) PO SCH ×2 (08:01→20:00)
[2020-07-06] MEDS: LEVEMIR (INSULIN DETEMIR) 1 UNITS/0.01ML SC SCH ×2 (08:05→20:03)
--- NOTE | 2020-07-06 11:06 | IPN ---
PROGRESS NOTE DATE: 07/06/2020 Rosetta is walking the halls without any difficulty. Her blood sugar is coming under better control. [facility] is working on placement. Today, we are increasing the dose of her detemir insulin. Continue sliding scale with coverage. She is still acute level of care per instructions from [facility] as they pursue placement.
[2020-07-06 14:00] VITALS: BP 144/83
[2020-07-06] MEDS: SIMVASTATIN 20 MG TAB PO SCH (19:59)
[2020-07-06] MEDS: OLANZapine 10 MG TAB PO SCH (20:00)
[2020-07-06] MEDS: IBUPROFEN 600MG TAB PO PRN (20:01)
[2020-07-06] MEDS: AMITRIPTYLINE 10 MG TAB PO SCH (20:01)
[2020-07-06 22:00] VITALS: BP 149/81
[2020-07-07] MEDS: IBUPROFEN 600MG TAB PO PRN (03:36)
[2020-07-07] MEDS: CitaloPRAM (CeleXA) 20 MG TAB PO SCH (07:38)
[2020-07-07] MEDS: ASPIRIN 81 MG ENTERIC TAB PO SCH (07:38)
[2020-07-07] MEDS: CHLORTHALIDONE 12.5MG PER 1/2 TABLET PO SCH (07:38)
[2020-07-07] MEDS: DOCUSATE SODIUM 100MG CAPSULE PO SCH (07:39)
[2020-07-07] MEDS: CARVedilol 12.5 MG TAB PO SCH (07:39)
[2020-07-07] MEDS: CYANOCOBALAMIN 500 MCG TAB PO SCH (07:39)
[2020-07-07 07:40] VITALS: BP 149/81
[2020-07-07] MEDS: ASCORBIC ACID 500 MG TAB PO SCH (07:40)
[2020-07-07] MEDS: amLODIPine 10 MG TAB PO SCH (07:40)
[2020-07-07] MEDS: LORazepam 0.5 MG TAB PO PRN (07:40)
[2020-07-07] MEDS: lisinopriL 40 MG TAB PO SCH (07:40)
[2020-07-07] MEDS: HumaLOG INSULIN (NovoLOG) PER UNIT SC SCH ×2 (07:42→12:20)
[2020-07-07] MEDS: LEVEMIR (INSULIN DETEMIR) 1 UNITS/0.01ML SC SCH (07:43)
[2020-07-07] MEDS: LORATADINE 10 MG TAB PO SCH (07:51)
[2020-07-07] MEDS: PANTOPRAZOLE 40MG TAB (PROTONIX) PO SCH (07:51)
[2020-07-07] MEDS: metFORMIN (GLUCOPHAGE) 500 MG TAB PO SCH (07:51)
[2020-07-07] MEDS: PREGABALIN 100 MG CAP (LYRICA) PO SCH (07:52)
[2020-07-07] MEDS ORDERED: GLUC500T PO (11:16)
[2020-07-07 14:00] VITALS: BP 145/75
--- NOTE | 2020-07-08 22:02 | DS.PDOC ---
Discharge Summary General Date of Admission Jul 04, 2020 at 11:37 Date of Discharge Jul 07, 2020 Attending Physician: KAVITHA REESE DO Discharge Summary PROCEDURES PERFORMED DURING STAY: None ADMITTING DIAGNOSES: 1. Inadequate housing 2. Uncontrolled diabetes mellitus 3. Hypertension 4. Bipolar disorder 5. History of PTSD DISCHARGE DIAGNOSES: 1. Inadequate housing 2. Uncontrolled diabetes mellitus 3. Hypertension 4. Bipolar disorder 5. History of PTSD COMPLICATIONS/CHIEF COMPLAINT: Hospital Admission Due To Social Situation. HISTORY OF PRESENT ILLNESS: Mrs. Huffman is a 59 year old female with hypertension and bipolar who was admitted because her living conditions were not safe or hygienic. Otherwise, she is a poorly controlled type 2 diabetic mellitus. She has an HbA1c of 11.3% and is requiring insulin. She was last hospitalized in May for acute kidney injury which resolved. HOSPITAL COURSE: Her hospitalization occurred over the holiday, and she stayed a few days waiting for a safe discharge plan. Her insulins adjusted. On 07/07/2020, we had a safe discharge plan. Patient has running water at home and home services. Today, she felt well. Denied any fever, chest pain, dyspnea, abdominal pain, or dysuria. She was provided with a cab voucher and subsequently discharged. DISCHARGE MEDICATIONS: Please see below. ALLERGIES: Please see below. PHYSICAL EXAMINATION ON DISCHARGE: VITAL SIGNS: Please see below. GENERAL: Comfortable, in no apparent distress HEENT: Head normocephalic, atraumatic, EOMI, sclera clear NECK: Supple CARDIOVASCULAR EXAMINATION: Regular rate and rhythm RESPIRATORY EXAMINATION: Lungs clear to auscultation bilaterally ABDOMINAL EXAMINATION: Soft, nontender, normal bowel sounds EXTREMITIES: No pitting edema bilaterally SKIN: Warm and dry NEUROLOGICAL EXAMINATION: CN 3-12 grossly intact PSYCHIATRIC EXAMINATION: Normal mood and affect LABORATORY DATA: Please see below. IMAGING: None PROGNOSIS: Good ACTIVITY: As tolerated. DIET: Carbohydrate consistent diet DISCHARGE PLAN: Home DISPOSITION: Home Health Service. DISCHARGE INSTRUCTIONS: 1. Follow up with your PCP within 5 days DISCHARGE CONDITION: Stable. Total time spent on discharge planning, discharge summary, and medication reconciliation: 38 minutes Vital Signs/I&Os Vital Signs Date Time Temp Pulse Resp B/P (MAP) Pulse Ox O2 Delivery O2 Flow Rate FiO2 07/07/20 14:00 98.8 80 18 145/75 (98) 96 Room Air I&O- Last 24 Hours up to 6 AM 07/08/20 06:00 Intake Total 900 ml Output Total 0 ml Balance 900 ml Discharge Medications Scheduled Alogliptin Benzoate (Alogliptin) 12.5 Mg Tablet, 12.5 MG PO DAILY, (Reported) Amitriptyline HCl (Amitriptyline HCl) 10 Mg Tablet, 20 MG PO QHS, (Reported) Amlodipine Besylate (Amlodipine Besylate) 10 Mg Tablet, 10 MG PO DAILY, (Reported) Ascorbic Acid (Ascorbic Acid) 500 Mg Tablet, 500 MG PO DAILY, (Reported) Aspirin (Aspirin EC) 81 Mg Tablet.dr, 162 MG PO DAILY, (Reported) Calcium Carbonate/Vitamin D3 (Calcium 500-Vit D3 200 Tablet) 1 Each Tablet, 1 TAB PO DAILY, (Reported) Carvedilol (Carvedilol) 25 Mg Tablet, 25 MG PO BID, (Reported) Citalopram Hydrobromide (Citalopram HBr) 40 Mg Tablet, 20 MG PO DAILY, (Reported) Docusate Sodium (Docusate Sodium) 100 Mg Capsule, 100 MG PO BID, (Reported) Ergocalciferol (Vitamin D2) (Vitamin D2) 50,000 Units Cap, 50,000 UNITS PO QWEEK, (Reported) START TAKING ON 07/01/20 PER UPSTATE FOR 8 DOSES Insulin Glargine,Hum.rec.anlog (Lantus Solostar) 100 Unit/1 Ml Insuln.pen, 40 UNITS SC BID, (Reported) Insulin Human Lispro (Novolog) 100 Unit/1 Ml Vial, 1 DOSE SC AC, (Reported) PER SLIDING SCALE Lisinopril (Lisinopril) 40 Mg Tablet, 40 MG PO DAILY, (Reported) Loratadine (Loratadine) 10 Mg Tablet, 10 MG PO DAILY, (Reported) Melatonin (Melatonin) 3 Mg Tablet, 3 MG PO QHS, (Reported) Metformin HCl (Glucophage) 500 Mg Tablet, 500 MG PO BID@,18 Olanzapine (Olanzapine) 20 Mg Tablet, 20 MG PO QHS, (Reported) Pantoprazole Sodium (Pantoprazole Sodium) 40 Mg Tablet.dr, 40 MG PO BID, (Reported) Pregabalin (Pregabalin) 300 Mg Capsule, 300 MG PO BID, (Reported) Simvastatin (Simvastatin) 40 Mg Tablet, 20 MG PO QHS, (Reported) Scheduled PRN Capsaicin (Capsaicin) 42.5 Gm Cream..g., 1 DOSE EXT BID PRN for PAIN, (Reported) APPLY TO FEET Fluticasone Propionate (Fluticasone Propionate) 16 Gm [place].susp, 1 SPRAY [place] BID PRN for CONGESTION, (Reported) Ibuprofen (Ibuprofen) 600 Mg Tablet, 600 MG PO BID PRN for PAIN, (Reported) with food Lorazepam (Ativan) 0.5 Mg Tablet, 0.5 MG PO BID PRN for ANXIETY, (Reported) Oxycodone HCl (Oxycodone HCl) 5 Mg Tablet, 5 MG PO BID PRN for PAIN, (Reported) Polyethylene Glycol 3350 (Miralax) 119 Gm Powder, 17 GM PO DAILY PRN for CONSTIPATION, (Reported) dilute in 8 ounces of water or juice Allergies Coded Allergies: sulfamethoxazole (Verified Allergy, Mild, rash, 06/30/20) trimethoprim (Verified Allergy, Mild, rash, 06/30/20) diazepam (Verified Adverse Reaction, Mild, hyperactivity, 06/30/20) codeine (Unverified Adverse Reaction, Unknown, "reversed reaction.", 06/30/20) KAVITHA REESE DO Jul 08, 2020 21:59
== END 2020-07-07 17:30 | disposition home health service (06) | DRG 639 ==
LOC: M ED 15:53 → EDBD 15:53 → M ED INP 15:54 → M MS5PR 07-01 00:30 → OBSVTOIN 07-04 11:37 → M MS5PR 07-05 13:45
PROVIDERS: ADMIT Family Medicine; ATTEND Internal Medicine
DX: E11.65 Type 2 diabetes mellitus with hyperglycemia (principal); Z59.1 Inadequate housing; I10 Essential (primary) hypertension; F31.9 Bipolar disorder, unspecified; Z73.4 Inadequate social skills, not elsewhere classified; F43.10 Post-traumatic stress disorder, unspecified; Z60.8 Other problems related to social environment; F17.200 Nicotine dependence, unspecified, uncomplicated; Z91.19 Patient's noncompliance with other medical treatment and regimen; Z88.5 Allergy status to narcotic agent; Z88.2 Allergy status to sulfonamides; Z88.8 Allergy status to other drugs, medicaments and biological substances; Z79.4 Long term (current) use of insulin; Z79.82 Long term (current) use of aspirin; Z79.899 Other long term (current) drug therapy; Z79.891 Long term (current) use of opiate analgesic